=== PATIENT | male | born 1955 | race Caucasian/White ===

== ENCOUNTER 2020-02-16 20:53 | Inpatient (IN) | payer OTHER ==
[~2020-02-16] VITALS: Ht 165.1 cm; Wt 125.2 kg
[2020-02-16 20:55] VITALS: BP 176/104
--- NOTE | 2020-02-16 21:03 | NUR ---
PATIENT PRESENTS TO ED WITH C/O BEING COVID (+) . PT STATES SX SINCE 02/05 AND THAT IS COVID (+). DENIES N/V/D; SKIN IS PINK/WARM/DRY; AAOX4 LUNGS CLEAR BL; HR EVEN AND REGULAR; PT DENIES ANY FEVER, CP, SOB, OR COUGH AT THIS TIME; PATIENT STATES PAIN OF 0/10 AT THIS TIME; VSS; PATIENT POSITIONED FOR COMFORT; HOB ELEVATED; BEDRAILS UP X2; BED DOWN. ER MD MADE AWARE OF PT STATUS.
--- NOTE | 2020-02-16 21:27 | NUR ---
XRAY AT BEDSIDE.
--- NOTE | 2020-02-16 21:30 | NUR ---
EKG PERFORMED AT BEDSIDE. EKG READS SINUS TACHYCARDIA @ 105
--- NOTE | 2020-02-16 21:35 | NUR ---
SL ESTABLISHED, LABS DRAWN AND BLOOD CULTURE #1 DRAWN. EKG AND PCXR WERE DONE
[2020-02-16 21:58] LABS: BASOPHILS % (AUTO) 0.1 % (0.0-2.0); HEMATOCRIT 42.8 % (36-52); HEMOGLOBIN 14.3 g/dL (12.0-18.0); LYMPHOCYTES # (AUTO) 0.7 K/uL (2.0-11.5); LYMPHOCYTES % (AUTO) 10.5 % (20.5-51.1); MEAN CORPUSCULAR HEMOGLOBIN 31 pg (27-31); MEAN CORPUSCULAR HGB CONC 34 g/dL (33-37); MONOCYTES # (AUTO) 0.6 K/uL (0.8-1.0); MONOCYTES % (AUTO) 9.4 % (1.7-9.3); NEUTROPHILS # (AUTO) 5.2 K/uL (1.8-7.7); PLATELET COUNT (AUTO) 217 K/uL (140-450); RED CELL DISTRIBUTION WIDTH 14.9 % (11.6-13.7); WHITE BLOOD COUNT (AUTO) 6.4 K/uL (4.8-10.8)
[2020-02-16 22:14] LABS: ALBUMIN 3.1 g/dL (3.4-5.0); ANION GAP 12.1 (8-16); CARBON DIOXIDE 27.6 mmol/L (21-32); CREATININE 0.9 mg/dL (0.6-1.3); POTASSIUM 3.7 mmol/L (3.5-5.1); TOTAL BILIRUBIN 0.3 mg/dL (0.0-1.0)
[2020-02-16] MEDS ORDERED: OSELTAMIVIR PHOSPHATE 75 MG CAP PO ONE (22:35)
--- NOTE | 2020-02-16 23:00 | NUR ---
RESTING COMFORTABLY. IS TO BE ADMITTED AND ROOM IS READY. PT MADE AWARE. HAS BEEN UNABLE TO VOID
--- NOTE | 2020-02-16 23:24 | NUR ---
REPORT CALLED TO TODD RN
--- NOTE | 2020-02-16 23:24 | NUR ---
Patient will be admitted to care of DR BROOKE. Will go to room 111B. Belongings list completed. Report to JUAN BROOKS.
--- NOTE | 2020-02-16 23:34 | NUR ---
TO 111B VIA GURNEY, ATTACHED TO DESK CLERKS SUPERVISOR, ACCOMPANIED BY RN AND ERT
[2020-02-16 23:45] VITALS: BP 150/97
--- NOTE | 2020-02-16 23:45 | NUR ---
ADMITTED A 65m FROM ER. CAME BY MICHAEL DUE TO S/S OF COVID +. WAS TESTED FEW DAYS AGO FOR COVID AND RESULT +POSITIVE, HAS SLIGHT TEMP PRIOR TO ADMISSION. BUT AT THIS TIME TEMP IS 98.9. WITH INTERMITTENT PRODUCTIVE COUGH . WEAKNESS AND SOB . ON O2 4L/NC. 2 SAT 93% AT THIS TIME. NO C/O SOB. PT HAS HL ON THE LT AC G#18. CLEAR AND PATENT. AMBULATE WITH CANE. BOTH LEGS ARE BIG HX: LUPUS. SKIN INTACT. ORIENTED TO HOSPITAL ROUTINES. FREQ ROUNDS NEEDED. BED ON LOW POSITION. SIDE RAILS UP X2 AND CALL LIGHT ,URINAL WITHIN REACH. WILL CONTINUE TO MONITOR. FOLLOW UP WITH ADMIT ORDERS.
--- NOTE | 2020-02-17 00:10 | NUR ---
MRSA NARES SPECIMEN COLLECTED. SEND TO LAB.
[2020-02-17] MEDS ORDERED: ONDANSETRON 4 MG/2 ML VIAL IM/IVP PRN (00:35)
[2020-02-17] MEDS ORDERED: DOCUSATE SODIUM 100 MG GELCAP PO PRN (00:35)
[2020-02-17] MEDS ORDERED: HYDROcodone/APAP 5/325 MG 1 TAB TAB PO PRN (00:35)
[2020-02-17] MEDS ORDERED: MORPHINE SULFATE 2 MG/ML SYR IVP PRN (00:35)
[2020-02-17 01:32] LABS: MAGNESIUM 1.9 mg/dL (1.8-2.4); PHOSPHORUS 2.3 mg/dL (2.5-4.9)
[2020-02-17] MEDS: NACL 0.9% 1,000 ML IV SCH ×2 (01:36→17:25)
--- NOTE | 2020-02-17 01:36 | NUR ---
IVF NS @60 ML/HR STARTED ON PT ON HIS LT AC G18. CLEAR AND PATENT.
--- NOTE | 2020-02-17 02:00 | NUR ---
CHECKED ON PT. ASLEEP. O2 SAT 94% WITH O2 4L/NC. WILL CONTINUE TO MONITOR.
--- NOTE | 2020-02-17 03:30 | NUR ---
CHECKED ON PT. ASLEEP. NO SOB NOTED. O2 SAT 93%. WILL CONTINUE TO MONITOR.
[2020-02-17 04:00] VITALS: BP 140/68
--- NOTE | 2020-02-17 05:40 | NUR ---
STILL NEED URINE SPECIMEN FOR UA AND CULTURE. PT INSTRUCTED TO USE THE NEW URINAL. CALL US IF ANY URINE AVAILABLE. VERBALIZED UNDERSTANDING.
--- NOTE | 2020-02-17 06:40 | NUR ---
URINE SPECIMEN COLLECTED AND SEND TO LAB.
--- NOTE | 2020-02-17 07:35 | NUR ---
ENDORSED PT IN STABLE CONDITION TO AM NURSE.
[2020-02-17 08:00] VITALS: BP 121/61
[2020-02-17] MEDS: OSELTAMIVIR PHOSPHATE 75 MG CAP PO SCH ×2 (09:16→20:15)
[2020-02-17] MEDS: ACETAMINOPHEN 325 MG TAB PO PRN ×3 (09:16→23:33)
--- NOTE | 2020-02-17 09:20 | NUR ---
SCHEDULED MEDICATIONS GIVEN. TYLENOL GIVEN FOR HIGH FEVER. PATIENT HAS FLU SYMPTOMS SUCH RUNNING NOSE, NOSE CONGESTIONS. EDUCATIONS PROVIDED REGARDING MEDICATIONS AND COVID S/S AND MANAGEMENT. O2 SAT RANGE FROM 85-90%. ENCOURAGED PATIENT TO TAKE DEEP BREATH AND RELAXATION TECHNIQUE. SAFETY MEASURES IN PLACE, CALL LIGHT WITHIN REACH. WILL CONTINUE TO MONITOR.
[2020-02-17 10:49] LABS: BILIRUBIN,URINE NEGATIVE (NEGATIVE); BLOOD, URINE 1+ (NEGATIVE); COLOR,URINE YELLOW (YELLOW); LEUKOCYTE ESTERASE ,URINE NEGATIVE (NEGATIVE); NITRITE, URINE NEGATIVE (NEGATIVE); PH,URINE 6.5 (5.0-9.0); UGLUCOSE NEGATIVE (NEGATIVE)
[2020-02-17 10:53] LABS: APPEARANCE,URINE SLIGHTLY HAZY (CLEAR)
[2020-02-17 11:02] LABS: URINE AMORPHOUS URATE None Seen /HPF (None Seen); WBC,URINE 0-5 /HPF (0-5)
--- NOTE | 2020-02-17 11:05 | NUR ---
CHECKED PATIENT. PT RESTING IN BED WITH LEFT LATERAL POSITION, RUNNING NOSE DUE TO INFLUENZA B. O2 SAT 87% WITH 3L NC, PATIENT'S O2 DESATURATE TO 84-85% WHEN HE TALKS OR MOVES/TURNS. ENCOURAGED PATIENT TO TAKE DEEP BREATH AND KEEP HYDRATION. SAFETY MEASURES IN PLACE, WILL CONTINUE TO MONITOR.
[2020-02-17 12:00] VITALS: BP 104/70
--- NOTE | 2020-02-17 14:28 | NUR ---
PATIENT RESTING IN BED, OXYGEN EXTENSION TUBE PROVIDED. PATIENT STILL HAS RUNNING NOSE, TISSUE PROVIDED. O2 SAT 88-89% WITH 3L NX. DR. BROOKE CAME TO CHECK ON THE PATIENT AT THE BEDSIDE. WILL CONTINUE TO MONITOR.
[2020-02-17 16:00] VITALS: BP 123/72
[2020-02-17] MEDS ORDERED: SODIUM PHOS / POTASSIUM PHOS 1 PKT PDR PO PRN (17:20)
--- NOTE | 2020-02-17 17:26 | NUR ---
TYLENOL GIVEN FOR TEMP 100.5. HANG NEW BAG OF IVF, O2 SAT 89% WITH 3L NC. PATIENT HAS RUNNING NOSE. SAFETY MEASURES IN PLACE, CALL LIGHT WITHIN REACH. WILL CONTINUE TO MONITOR.
--- NOTE | 2020-02-17 18:55 | NUR ---
Covid results received from lab. Results = POSITIVE. Hard copy requested from lab and placed in infection controls mailbox.
--- NOTE | 2020-02-17 19:20 | NUR ---
ENDORSED PATIENT TO RENTAL CAR PORTER RN FOR CONTINUITY OF CARE. PATIENT IN STABLE CONDITION.
--- NOTE | 2020-02-17 19:21 | NUR ---
RECEIVED REPORT FROM DAY SHIFT NURSE. PT IN BED RESTING WITH HOB ELEVATED. PT AAOX4, AMBULATES WITH ASSISTIVE DEVICE, ABLE TO MAKE NEEDS KNOWN. RESPIRATIONS EVEN AND UNLABORED TO O2 3LPM/NC. PT WITH DIMINISHED LUNG SOUNDS. ABDOMEN IS SOFT AND NON-TENDER, ACTIVE BOWEL SOUNDS NOTED. SKIN IS WARM, DRY, AND INTACT. PT WITH IV ACCESS ON LEFT AC G18 PATENT AND INTACT, IVF INFUSING WELL. PT DENIES ANY PAIN OR DISCOMFORT AT THIS TIME. NO REQUESTS MADE. SAFETY MEASURES IN PLACE, CALL LIGHT WITHIN REACH. WILL CONTINUE TO MONITOR.
[2020-02-17 20:00] VITALS: BP 137/84
--- NOTE | 2020-02-17 20:08 | NUR ---
VS TAKEN, STABLE. PT FEBRILE 101.6 TYLENOL NOT DUE YET. COOLING MEASURES IN PLACE. PT DENIES ANY PAIN OR DISCOMFORT. PT NOT IN DISTRESS. O2 3LPM/NC IN PLACE. NO REQUESTS MADE. SAFETY MEASURES IN PLACE. CALL LIGHT WITHIN REACH. WILL CONTINUE TO MONITOR.
--- NOTE | 2020-02-17 23:33 | NUR ---
ROUNDS MADE. VS STABLE. PT STILL FEBRILE 101.6, PRN TYLENOL GIVEN ORDERED. COOLING MEASURES IN PLACE. PT NOT IN DISTRESS. O2 IN PLACE. NO REQUESTS MADE AT THIS TIME. SAFETY MEASURES IN PLACE, CALL LIGHT WITHIN REACH. WILL CONTINUE TO MONITOR.
[2020-02-18] VITALS: BP 134/67
--- NOTE | 2020-02-18 02:31 | NUR ---
ROUNDS MADE. PT ASLEEP NO SIDE LYING POSITION. O2 IN PLACE. PT NOT IN DISTRESS. VISIBLE CHEST RISE AND FALL NOTED. PT KEPT COMFORTABLE. SAFETY MEASURES IN PLACE. CALL LIGHT WITHIN REACH. WILL CONTINUE TO MONITOR.
[2020-02-18 04:00] VITALS: BP 119/71
--- NOTE | 2020-02-18 04:05 | NUR ---
VS TAKEN. TEMP 100.0, COOLING MEASURES IN PLACE. PT NOT IN DISTRESS. O2 IN PLACE. DENIES ANY PAIN OR DISCOMFORT. CALL LIGHT WITHIN REACH. WILL CONTINUE TO MONITOR.
[2020-02-18] MEDS: ACETAMINOPHEN 325 MG TAB PO PRN (06:40)
--- NOTE | 2020-02-18 06:40 | NUR ---
TEMP 100.7 PRN TYLENOL GIVEN ORDERED. WILL CONTINUE TO MONITOR.
--- NOTE | 2020-02-18 08:01 | NUR ---
ENDORSED TO DAY SHIFT NURSE FOR CONTINUITY OF CARE
[2020-02-18 08:10] VITALS: BP 122/81
[2020-02-18 08:31] LABS: ANION GAP 11.5 (8-16); CARBON DIOXIDE 28.5 mmol/L (21-32); CREATININE 0.7 mg/dL (0.6-1.3)
[2020-02-18 08:32] LABS: BASOPHILS % (AUTO) 0.3 % (0.0-2.0); EOSINOPHILS % (AUTO) 0.1 % (0.0-4.0); HEMATOCRIT 41.8 % (36-52); LYMPHOCYTES % (AUTO) 17.3 % (20.5-51.1); MEAN CORPUSCULAR HEMOGLOBIN 30 pg (27-31); MEAN CORPUSCULAR HGB CONC 34 g/dL (33-37); MEAN CORPUSCULAR VOLUME 90.2 fL (80-94); MONOCYTES # (AUTO) 0.6 K/uL (0.8-1.0); MONOCYTES % (AUTO) 9.7 % (1.7-9.3); NEUTROPHILS # (AUTO) 4.3 K/uL (1.8-7.7); NEUTROPHILS % (AUTO) 72.6 % (42.2-75.2); PLATELET COUNT (AUTO) 202 K/uL (140-450); RED BLOOD CELL COUNT(AUTO) 4.63 MIL/uL (4.20-6.10); RED CELL DISTRIBUTION WIDTH 14.9 % (11.6-13.7); WHITE BLOOD COUNT (AUTO) 5.9 K/uL (4.8-10.8)
--- NOTE | 2020-02-18 09:00 | NUR ---
PATIENT HAS BEEN SCREENED AND CATEGORIZED MODERATE NUTRITION RISK. PATIENT WILL BE SEEN WITHIN 3-5 DAYS OF ADMISSION. 02/19/20 02/21/[address]
[2020-02-18] MEDS: OSELTAMIVIR PHOSPHATE 75 MG CAP PO SCH ×2 (09:39→21:00)
[2020-02-18] MEDS: NACL 0.9% 1,000 ML IV SCH (10:05)
[2020-02-18] MEDS ORDERED: MAG SULF 2000 MG/WATER PREMIX 50 ML IV PRN (11:20)
--- NOTE | 2020-02-18 11:33 | NUR ---
DISCHARGE PLANNING: LATE ENTRY FOR THIS MORNING: CONTACTED [employer] TO FOLLOW UP WITH AUTH AT [phone], I WAS ON HOLD FOR 32 MINS JUST TO TRY TO CONNECT TO A LIVE AGENT. I WILL FOLLOW UP. Addendum: 02/18/20 at 1218 by Jennifer Garrison CM ABLE TO GET A HOLD OF SHELLIE PRUITTENA AFTER 27 MINS ON HOLD. PER SHELLIE KRISHNAN, SHE DENIED YESTERDAY BECAUSE OF INSUFFICIENT INFORMATION. SHE STATED SHE ONLY GOT CLINICALS FROM THE . UPDATED HER OF THE PATIENT'S CONDITION. SHE STATED IF SHE GETS CLINICALS FOR TODAY, SHE WILL REVIEW IT. I ASKED HER FOR HER DIRECT NUMBER BECAUSE I HAD A HARD TIME GETTING A HOLD OF THEM. SHE PROVIDED ME WITH HER DIRECT NUMBER [phone]. UPDATED CLINICALS SENT TO [phone]. Addendum: 02/18/20 at 1410 by Jennifer Garrison CM PER DR. HAILE, PATIENT IS STABLE FOR TRANSFER TO CONTRACTED FACILITY. ORDER TRANSCRIBED. ORDER AND POST STAB FORM SENT TO [employer]. SHELLIE KRISHNAN OF [employer] MADE AWARE AT [phone]. PER SHELLIE KRISHNAN SHE WILL WORK ON IT. PROVIDED HER OF THE UNIT'S PHONE NUMBER. WILL FOLLOW UP. Addendum: 02/18/20 at 1502 by Jennifer Garrison RECEIVED A CALL FROM SHELLIE MOLINA [employer], STATING THAT SHE SPOKE TO THE NURSE AND INFORMED HER THAT PATIENT DESATURATED TO 80% AND INCREASED 02 TO 6LPM. SHE STATED SHE WILL RETRACT THE DENIAL AND WILL BE SENDING HARD COPY OF THE AUTH AND WILL FOLLOW UP WITH ME AGAIN TOMORROW. Addendum: 02/26/20 at 1651 by Corina Loyd DC MILK DRIER: TRANSPORTATION HAS BEEN SET UP ON WILL CALL WITH [facility]. PENDING BED AT [facility].
[2020-02-18 12:00] VITALS: BP 125/79
[2020-02-18] MEDS ORDERED: POTASSIUM CHLORIDE 40 MEQ, LIDOCAINE MPF 1% 25 MG in NACL 0.9% 250 ML IV PRN (13:00)
--- NOTE | 2020-02-18 14:13 | NUR ---
SOCIAL WORK NOTE: Patient's Orientation Unable To Assess Information Provided By JEREMY MONTESINOS - Comments SW WAS UNABLE TO MEET PATIENT AT BEDSIDE DUE TO MEDICAL CONDITION. SW COMPLETED ASSESSMENT WITH PATIENT'S . Montessori Program Director, Realtionship and Phone Number JEREMY CASTELLANOS [phone] Healthcare Power of Rotary Cutter Feeder No Does Patient Have a POLST No Identifying Problems No Social Work Triggers Is A Social Work Consult Needed No Mandate Report Filed No Explanation Of Identifying Problems PATIENT IS A 65-YEAR-OLD MALE ADMITTED FOR COVID, HYPOXIA, AND INFLUENZA. PATIENT HAS PMHX OF ASTHMA AND LUPUS. PATIENT'S REPORTED NO HISTORY OF SUBSTANCE ABUSE OR MENTAL HEALTH. Admitted From Home Pre-Admission Level Of Functioning Status Independent With DME Prior Resources/Services Used In Last 12 Months No Prior Resources Used Prior DME Walker Dialysis Comments N/A Living Situation Lives With Family House Other Living Situation/Comment PATIENT'S REPORTED THAT PATIENT LIVES WITH AND DAUGHTERS. Patient Had Caregiver No Home Support No Caregiver Issues Financial Issues No Known Financial Issue Referral To The Financial Counselor Needed No Factors/Needs No D/C Needs Identified Pt/Rep Participated In Discharge Plan Yes Patient/Family Agress With Discharge Plan Yes Discharge Plan Comments TENTATIVE DISCHARGE PLAN IS FOR PATIENT TO RETURN HOME. DC Plan Status Initiated
[2020-02-18] MEDS ORDERED: remdesivir COMMUNICATION ORDER 1 EA MISC MC PRN (14:20)
[2020-02-18] MEDS ORDERED: CLINICAL MONITORING MC PRN (14:45)
[2020-02-18] MEDS ORDERED: POTASSIUM CHLORIDE 10 MEQ TABER PO SCH (15:00)
[2020-02-18 16:00] VITALS: BP 121/77
[2020-02-18] MEDS ORDERED: REMDESIVIR (EUA) 200 MG in NACL 0.9% 100 ML IV SCH (17:00)
--- NOTE | 2020-02-18 19:25 | NUR ---
RECEIVED REPORT AND CONTINUITY OF CARE FROM AM NURSE.
[2020-02-18 20:00] VITALS: BP 151/97
[2020-02-18] MEDS: VITAMIN D 400 IU TAB PO SCH (21:00)
[2020-02-18] MEDS: ZINC SULF 220 MG CAP PO SCH (21:00)
--- NOTE | 2020-02-18 21:40 | NUR ---
PT IS A/OX4, MOHAWK SPEAKING, HEAD IS NORMOCEPHALIC, EQUAL BILATERAL EYEBROWS, SYMMETRICAL SMILE, PMMM. TRACH MIDLINE, NO JVD NOTED AT THIS TIME. CHEST IS SYMMETRICAL, BREATHING SPONTANEOUSLY ON 15L 02 VIA OXIMIZER, RESPIRATIONS EVEN AND UNLABORED. TELE MONITOR ATTACHED. ABD IS SOFT AND NON-TENDER, ACTIVE BOWEL TONES NOTED. SKIN IS WARM, SMOOTH, CDI. NORMAL SKIN TURGOR NOTED. ADMINISTERED SCHEDULED MEDICATIONS, EDUCATION RENDERED. SAFETY PRECAUTIONS IN PLACE. ALL STAFF TO OBSERVE ISOLATION PRECAUTION.
--- NOTE | 2020-02-18 23:20 | NUR ---
PT IS SLEEPING. VISIBLE CHEST RISE NOTED.
[2020-02-19] VITALS: BP 141/85
[2020-02-19] MEDS: REMDESIVIR (EUA) 100 MG in NACL 0.9% 100 ML IV SCH ×2
--- NOTE | 2020-02-19 00:59 | NUR ---
PT IS SLEEPING. NO SIGNS OF DISTRESS AT THIS TIME.
[2020-02-19] MEDS: NACL 0.9% 1,000 ML IV SCH ×2 (02:35→20:00)
--- NOTE | 2020-02-19 03:23 | NUR ---
PT IS SLEEPING, NO SIGNS OF DISTRESS.
[2020-02-19 04:00] VITALS: BP 105/53
--- NOTE | 2020-02-19 05:32 | NUR ---
PT IS SLEEPING.
--- NOTE | 2020-02-19 07:20 | NUR ---
RECEIVED REPORT FROM NIGHT NURSE PATIENT IS AAOX4, SKIN INTACT ON 4LPM 0XYGEN VIA NC, FOR PICC LINE INSERTION WITH CONSENT, AMBULATORY, ON CARDIAC DIET AND FULL CODE. SAFETY MEASURES IN PLACE AND CALL LIGHT WITHIN REACH. WILL CONTINUE TO MONITOR.
[2020-02-19 08:00] VITALS: BP 127/67
[2020-02-19 08:11] LABS: BASOPHILS % (AUTO) 0.2 % (0.0-2.0); EOSINOPHILS % (AUTO) 0.4 % (0.0-4.0); HEMATOCRIT 40.2 % (36-52); HEMOGLOBIN 13.5 g/dL (12.0-18.0); LYMPHOCYTES % (AUTO) 14.5 % (20.5-51.1); MEAN CORPUSCULAR HEMOGLOBIN 30 pg (27-31); MEAN CORPUSCULAR HGB CONC 34 g/dL (33-37); MEAN CORPUSCULAR VOLUME 89.9 fL (80-94); MONOCYTES # (AUTO) 0.6 K/uL (0.8-1.0); MONOCYTES % (AUTO) 7.9 % (1.7-9.3); NEUTROPHILS # (AUTO) 5.5 K/uL (1.8-7.7); PLATELET COUNT (AUTO) 215 K/uL (140-450); RED BLOOD CELL COUNT(AUTO) 4.47 MIL/uL (4.20-6.10); RED CELL DISTRIBUTION WIDTH 14.7 % (11.6-13.7); WHITE BLOOD COUNT (AUTO) 7.1 K/uL (4.8-10.8)
[2020-02-19 08:40] LABS: ALBUMIN 2.2 g/dL (3.4-5.0); ANION GAP 12.5 (8-16); CARBON DIOXIDE 26.9 mmol/L (21-32); CREATININE 0.8 mg/dL (0.6-1.3); POTASSIUM 3.4 mmol/L (3.5-5.1); TOTAL BILIRUBIN 0.6 mg/dL (0.0-1.0)
[2020-02-19] MEDS: POTASSIUM CHLORIDE 10 MEQ TABER PO SCH (08:44)
[2020-02-19] MEDS: OSELTAMIVIR PHOSPHATE 75 MG CAP PO SCH ×2 (08:45)
[2020-02-19] MEDS: VITAMIN D 400 IU TAB PO SCH ×2 (08:45)
[2020-02-19] MEDS: ZINC SULF 220 MG CAP PO SCH ×2 (08:45)
--- NOTE | 2020-02-19 08:45 | NUR ---
MEDICATION DUE GIVEN PATIENT ABLE TO TOLERATE WELL AND NO DISTRESS NOTED, DENIES PAIN AND VERBALIZES HE FEELS BETTER. SAFETY MEASURES IN PLACE CALL LIGHT WITHIN REACH. WILL CONTINUE TO MONITOR.
[2020-02-19] MEDS ORDERED: remdesivir CLINICAL MONITORING 1 EA MISC MC PRN (11:35)
[2020-02-19 12:00] VITALS: BP 146/87
[2020-02-19] MEDS: ACETAMINOPHEN 325 MG TAB PO PRN (12:30)
--- NOTE | 2020-02-19 12:36 | NUR ---
CHECK VITAL SIGNS PATIENT IS HAVING CHEEL;S ANF FEVER 100F GAVE TYLENOL AND COOLING MEASURES.
--- NOTE | 2020-02-19 14:00 | NUR ---
PATIENT OXYGEN LEVEL CHANGED FROM OXIMIZER TO NON RE BREATHER MASK AT 15LPM
[2020-02-19 16:00] VITALS: BP 135/65
--- NOTE | 2020-02-19 16:00 | NUR ---
VITAL SIGNS TAKE PATIENT BP 135/65 NM 118 AND SATURATION AT 85%
--- NOTE | 2020-02-19 19:03 | NUR ---
PICC INSERTED ON THE RIGHT UPPER ARM DOUBLE LUMEN AND OK TO USE.
--- NOTE | 2020-02-19 19:27 | NUR ---
ENDORSED TO NIGHT NURSE FOR CONTINUITY OF CARE. PT IS STABLE
--- NOTE | 2020-02-19 19:28 | NUR ---
RECIEVED PT AAOX4 , O2 SAT 90 TO 91 % , W/ PICC LINE - INTACT AND PATENT . W/ NRM + NC AT 15LPM . SAFETY MEASURES IN PLACE . PLAN OF CARE DISCUSSED AND VERBALIZE UNDERSTANDING . WILL CONT. TO MONITOR
[2020-02-19 20:00] VITALS: BP 124/72
[2020-02-19] MEDS ORDERED: AZITHROMYCIN 500 MG INJ VIAL IV ONE (20:41)
[2020-02-19] MEDS: AZITHROMYCIN 500 MG in DEXTROSE 5% 250 ML IV SCH (21:00)
[2020-02-20] VITALS: BP 121/71
--- NOTE | 2020-02-20 | NUR ---
RECEIVED PT AAOX4 , NID - O2 WNL - ON O2 AT 15LPM/ NRM . PICC LINE INTACT AND PATENT . PLAN OF CARE DISCUSSED AND VERBALIFE UNDERSTANDING WILL CONT. TO MONITOR .
--- NOTE | 2020-02-20 | NUR ---
MADE ROUNDS . NO S/SX OF ACUTE DISTRESS NOTED
[2020-02-20] MEDS ORDERED: PROMETHAZINE DM 6.25/15MG-5ML ORASYR PO PRN (01:00)
[2020-02-20 04:00] VITALS: BP 92/41
--- NOTE | 2020-02-20 04:00 | NUR ---
O2 AST WNL . NO S/SX OF ACUTE DISTRESS
--- NOTE | 2020-02-20 06:00 | NUR ---
NO COMPLAIN MADE
--- NOTE | 2020-02-20 07:30 | NUR ---
ENDORSED - PT - STABLE . Addendum: 02/20/20 at 0831 by Eli London RN INFORMED PHARMACIST ABOVE WHAT HAPPENNED TO LATE MEDICATION P- PHARMACIST SAID PROCEED THE DUE SCHEDULED MEDICATION TODAY - ENDORSED TO AM NURSE CALLE.
[2020-02-20 08:00] VITALS: BP 143/85
[2020-02-20 08:36] LABS: BASOPHILS % (AUTO) 0.3 % (0.0-2.0); EOSINOPHILS # (AUTO) 0.2 K/uL (0-0.4); EOSINOPHILS % (AUTO) 1.7 % (0.0-4.0); HEMATOCRIT 39.6 % (36-52); HEMOGLOBIN 13.5 g/dL (12.0-18.0); LYMPHOCYTES # (AUTO) 0.8 K/uL (2.0-11.5); MEAN CORPUSCULAR HEMOGLOBIN 30 pg (27-31); MEAN CORPUSCULAR HGB CONC 34 g/dL (33-37); MEAN CORPUSCULAR VOLUME 89.3 fL (80-94); MONOCYTES # (AUTO) 0.7 K/uL (0.8-1.0); MONOCYTES % (AUTO) 7.7 % (1.7-9.3); NEUTROPHILS # (AUTO) 7.4 K/uL (1.8-7.7); NEUTROPHILS % (AUTO) 81.3 % (42.2-75.2); PLATELET COUNT (AUTO) 207 K/uL (140-450); RED BLOOD CELL COUNT(AUTO) 4.43 MIL/uL (4.20-6.10); RED CELL DISTRIBUTION WIDTH 14.8 % (11.6-13.7); WHITE BLOOD COUNT (AUTO) 9.1 K/uL (4.8-10.8)
[2020-02-20 09:05] LABS: ALBUMIN 2.1 g/dL (3.4-5.0); ANION GAP 13.3 (8-16); CARBON DIOXIDE 25.5 mmol/L (21-32); CREATININE 0.7 mg/dL (0.6-1.3); POTASSIUM 3.8 mmol/L (3.5-5.1); TOTAL BILIRUBIN 0.5 mg/dL (0.0-1.0)
[2020-02-20] MEDS: DEXAMETHASONE 10 MG/ML VIAL IVP SCH (09:05)
[2020-02-20] MEDS: VITAMIN D 400 IU TAB PO SCH ×2 (09:06→21:31)
[2020-02-20] MEDS: OSELTAMIVIR PHOSPHATE 75 MG CAP PO SCH ×2 (09:06→21:31)
[2020-02-20] MEDS: ZINC SULF 220 MG CAP PO SCH ×2 (09:06→21:31)
[2020-02-20] MEDS: POTASSIUM CHLORIDE 10 MEQ TABER PO SCH (09:06)
--- NOTE | 2020-02-20 09:18 | NUR ---
SCHEDULED MEDICATIONS GIVEN, EDUCATION PROVIDED. PATIENT'S O2 SAT WAS FOUND 43%, PATIENT WAS TRYING TO EAT AND TOOK OFF THE NON REBREATHER. SWITCHED TO 15L OXIMIZER. WAITED FOR 10 MINS, O2 SAT INCREASED TO 77%. CALLED RT BILL, WILL CHECK THE PATIENT. WILL CONTINUE TO MONITOR.
--- NOTE | 2020-02-20 11:05 | NUR ---
PATIENT RESTING IN BED WITH LEFT LATERAL POSITION. O2 SAT 93-94% WITH 15L NRB. HR 100. SAFETY MEASURES IN PLACE, WILL CONTINUE TO MONITOR.
[2020-02-20] MEDS: NACL 0.9% 1,000 ML IV SCH (11:55)
[2020-02-20 12:00] VITALS: BP 114/96
[2020-02-20] MEDS: REMDESIVIR (EUA) 100 MG in NACL 0.9% 100 ML IV SCH (12:40)
--- NOTE | 2020-02-20 12:40 | NUR ---
RESDESIVIR GIVEN VIA IVPB. EDUCATION PROVIDED. PATIENT HAVING LUNCH. SITTING SIDE OF THE BED. O2 SAT RANGE FROM 84-90% WITH 15L NRB. ENCOURAGED PATIENT TO TAKE ONE BITE OF FOOD AND PUT BACK THE MASK ON, REPEAT UNTIL FINISH THE LUNCH. PATIENT VERBALIZED UNDERSTANDING. WILL CONTINUE TO MONITOR.
--- NOTE | 2020-02-20 14:52 | NUR ---
PATIENT RESTING IN BED, O2 SAT 92% WITH 15L NRB. HR 100. ENCOURAGED PATIENT TO TAKE DEEP BREATH AND RELAXATION TECHNIQUE. VERBALIZED UNDERSTANDING. NO ACUTE DISTRESS NOTED AT THIS TIME. PATIENT'S NEEDS MET. WILL CONTINUE TO MONITOR.
[2020-02-20 16:00] VITALS: BP 115/75
--- NOTE | 2020-02-20 16:06 | NUR ---
02/20/20 RD INITIAL ASSESSMENT COMPLETED PLEASE REFER TO NUTRITION ASSESSMENT UNDER CARE ACTIVITY FOR ESTIMATED NUTRITIONAL NEEDS. 1. CONTINUE MECHANICAL SOFT DIET TOLERATED 2. RECOMMEND ENSURE TID 3. ENCOURAGE INCREASING PO INTAKE 4. RD TO FOLLOW-UP 3-5 DAYS, MODERATE RISK GAMALIEL NGUYEN, ALETHA
[2020-02-20] MEDS: AZITHROMYCIN 500 MG in DEXTROSE 5% 250 ML IV SCH (16:38)
--- NOTE | 2020-02-20 16:38 | NUR ---
SCHEDULED MEDICATION AZITHROMYCIN GIVEN VIA IVPB. EDUCATION PROVIDED. PATIENT RESTING IN BED WITH O2 SAT 91% WITH 15L. PATIENT'S O2 DECREASE TO 88% WHEN HE TALK/MOVE. ENCOURAGED PATIENT TO RELAX, SAFETY MEASURES IN PLACE. WILL CONTINUE TO MONITOR.
--- NOTE | 2020-02-20 19:30 | NUR ---
ENDORSED PATIENT TO PUTTY MAKER RN FOR CONTINUITY OF CARE. PATIENT'S O2 SAT 92% WITH 15L NRB.
--- NOTE | 2020-02-20 19:30 | NUR ---
RECEIVED PT AAOX4 , NID - O2 SAT WNL - ON O2 AT 15LPM/NRM , PICC LINE INTACT AND PATENT . SAFETY MEASURES IN PLACE . PLAN OF CARE DISCUSSED AND VERBALIZE UNDERSTANDING . WILL CONT. TO MONITOR
[2020-02-20 20:00] VITALS: BP 141/76
[2020-02-21] VITALS: BP 116/89
--- NOTE | 2020-02-21 | NUR ---
NO S/SX OF ACUTE DISTRESS - O2 SAT WNL .
[2020-02-21] MEDS: NACL 0.9% 1,000 ML IV SCH ×3 (00:50→23:45)
[2020-02-21 04:00] VITALS: BP 110/60
--- NOTE | 2020-02-21 04:00 | NUR ---
O2 SAT WNL . NO S/SX OF ACUTE DISTRESS
--- NOTE | 2020-02-21 06:00 | NUR ---
NO COMPLAIN MADE - O2 SAT WNL .
--- NOTE | 2020-02-21 07:25 | NUR ---
ENDORSED - PT - STABLE
[2020-02-21 08:00] VITALS: BP 124/81
[2020-02-21 08:14] LABS: BASOPHILS % (AUTO) 0.1 % (0.0-2.0); HEMATOCRIT 38.3 % (36-52); HEMOGLOBIN 12.6 g/dL (12.0-18.0); LYMPHOCYTES # (AUTO) 0.5 K/uL (2.0-11.5); LYMPHOCYTES % (AUTO) 4.6 % (20.5-51.1); MEAN CORPUSCULAR HEMOGLOBIN 30 pg (27-31); MEAN CORPUSCULAR HGB CONC 33 g/dL (33-37); MEAN CORPUSCULAR VOLUME 90.2 fL (80-94); MONOCYTES # (AUTO) 1.1 K/uL (0.8-1.0); NEUTROPHILS # (AUTO) 10.2 K/uL (1.8-7.7); NEUTROPHILS % (AUTO) 86.3 % (42.2-75.2); PLATELET COUNT (AUTO) 222 K/uL (140-450); RED BLOOD CELL COUNT(AUTO) 4.24 MIL/uL (4.20-6.10); RED CELL DISTRIBUTION WIDTH 14.7 % (11.6-13.7); WHITE BLOOD COUNT (AUTO) 11.9 K/uL (4.8-10.8)
[2020-02-21] MEDS: DEXAMETHASONE 10 MG/ML VIAL IVP SCH (08:50)
[2020-02-21] MEDS: POTASSIUM CHLORIDE 10 MEQ TABER PO SCH (08:51)
[2020-02-21] MEDS: ZINC SULF 220 MG CAP PO SCH ×2 (08:51→21:36)
[2020-02-21] MEDS: VITAMIN D 400 IU TAB PO SCH ×2 (08:51→21:37)
--- NOTE | 2020-02-21 09:00 | NUR ---
SCHEDULED MEDICATIONS GIVEN, EDUCATION PROVIDED. PATIENT'S O2 SAT 91% WITH 15L NRB. O2 DESATURATE TO 86% WHEN TOOK OFF THE MASK FOR TAKING THE MEDICATIONS. O2 SAT WENT BACK TO 91% AFTER REAPPLIED THE MASK. DENIES PAIN OR DISCOMFORT AT THIS TIME. WILL CONTINUE TO MONITOR.
[2020-02-21 09:32] LABS: ANION GAP 12.2 (8-16); CREATININE 0.7 mg/dL (0.6-1.3); POTASSIUM 4.2 mmol/L (3.5-5.1); TOTAL BILIRUBIN 0.6 mg/dL (0.0-1.0)
[2020-02-21 12:00] VITALS: BP 126/82
[2020-02-21] MEDS: REMDESIVIR (EUA) 100 MG in NACL 0.9% 100 ML IV SCH (12:40)
--- NOTE | 2020-02-21 12:40 | NUR ---
SCHEDULED MEDICATIONS GIVEN, EDUCATION PROVIDED, SAFETY MEASURES IN PLACE, CALL LIGHT WITHIN REACH. O2 SAT 90% WITH 15L NRB. SAFETY MEASURES IN PLACE, CALL LIGHT WITHIN REACH. WILL CONTINUE TO MONITOR.
--- NOTE | 2020-02-21 15:25 | NUR ---
PATIENT HAD BM AND WET THE BED. SN CHANGED THE WHOLE BED LINENS AND CLEANED THE PATIENT. PATIENT HAD 1 BM. PATIENT'S O2 DESAT IF MOVES. O2 SAT INCREASE BACK TO 90% WHEN RESTING IN BED AND TAKE SOME DEEP BREATH. WILL CONTINUE TO MONITOR.
[2020-02-21 16:00] VITALS: BP 132/84
[2020-02-21] MEDS: AZITHROMYCIN 500 MG in DEXTROSE 5% 250 ML IV SCH (16:07)
--- NOTE | 2020-02-21 18:15 | NUR ---
PATIENT REQUESTED SN TO HELPED HIM TO USE THE BEDSIDE COMMODE. CLEANED THE PATIENT. SECOND TIME BM TODAY. ASSISTED PATIENT BACK TO THE BED, PATIENT'S O2 SAT DESATURATED TO 80S WHEN MOVES. O2 SAT INCREASED TO 88-91% WHEN RESTING IN BED WITH 15L NRB.
--- NOTE | 2020-02-21 19:55 | NUR ---
ENDORSED PATIENT TO EFFICIENCY MANAGER RN FOR CONTINUITY OF CARE. PATIENT IN STABLE CONDITION WITH 15L NRB. O2 SAT 90-91%.
--- NOTE | 2020-02-21 19:56 | NUR ---
RECEIVED ENDORSEMENT FROM AM SHIFT RN. AOX4, ON 15L NRM, NO SOB, NO DISTRESS, IVF INFUSING, FALL PROTOCOL IN PLACE, DROPLET PRECAUTION IN PLACE, PLAN OF CARE DISCUSSED, CALL LIGHT WITHIN REACH.
[2020-02-21 20:00] VITALS: BP 124/95
--- NOTE | 2020-02-21 21:47 | NUR ---
PT IS EATING SANDWICH, SITTING IN BED, NO SOB, DUE MEDS GIVEN ORDERED, TOLERATED WELL, CALL LIGHT WITHIN REACH.
--- NOTE | 2020-02-21 23:45 | NUR ---
PT IS AWAKE, NO DISTRESS, IVF FINISHED, HANGED A NEW BAG OF NS 1L AT 60 CC/HR ORDERED, KEPT COMFORTABLE, ALL NEEDS ATTENDED, CALL LIGHT WITHIN REACH.
[2020-02-22] VITALS: BP 142/88
[2020-02-22] MEDS: ALBUTEROL HFA MDI 90 MCG/ACTUATION 8 GM INH PRN (01:00)
[2020-02-22 04:00] VITALS: BP 113/77
--- NOTE | 2020-02-22 05:00 | NUR ---
GAVE WATER TO PATIENT, PT IS SITTING ON BED, EMPTIED HIS URINAL, ALL NEEDS ATTENDED, NO DISTRESS, PT VERBALIZED THAT HE IS OK. O2 SAT WILL GO DOWN TO 86% UPON EXERTION BUT IT WILL EASILY COME UP TO ABOVE 90% WHEN PT IS RESTING. WILL CONTINUE TO MONITOR, CALL LIGHT WITHIN REACH.
[2020-02-22] MEDS ORDERED: POTASSIUM CHLORIDE 10 MEQ TABER PO PRN (07:10)
--- NOTE | 2020-02-22 07:15 | NUR ---
PT IS IN STABLE CONDITION. BEDSIDE ENDORSEMENT GIVEN TO AM SHIFT RN FOR CONTINUITY OF CARE.
[2020-02-22 08:00] VITALS: BP 117/82
[2020-02-22] MEDS: VITAMIN D 400 IU TAB PO SCH ×2 (08:29→21:31)
[2020-02-22] MEDS: ZINC SULF 220 MG CAP PO SCH ×2 (08:29→21:31)
[2020-02-22] MEDS: DEXAMETHASONE 10 MG/ML VIAL IVP SCH (08:29)
--- NOTE | 2020-02-22 08:34 | NUR ---
SCHEDULED MORNING MEDICATIONS GIVEN, EDUCATION PROVIDED, PATIENT TOLERATED THE PROCEDURE WELL. PATIENT DENIES PAIN AT THIS TIME. O2 SAT RANGE FROM 86-90% WITH 15L NRB. SAFETY MEASURES IN PLACE, WILL CONTINUE TO MONITOR.
[2020-02-22 08:53] LABS: HEMATOCRIT 40.2 % (36-52); HEMOGLOBIN 13.4 g/dL (12.0-18.0); LYMPHOCYTES # (AUTO) 0.7 K/uL (2.0-11.5); LYMPHOCYTES % (AUTO) 3.9 % (20.5-51.1); MEAN CORPUSCULAR HEMOGLOBIN 30 pg (27-31); MEAN CORPUSCULAR HGB CONC 33 g/dL (33-37); MEAN CORPUSCULAR VOLUME 89.8 fL (80-94); MONOCYTES # (AUTO) 1.2 K/uL (0.8-1.0); MONOCYTES % (AUTO) 7.1 % (1.7-9.3); PLATELET COUNT (AUTO) 266 K/uL (140-450); RED BLOOD CELL COUNT(AUTO) 4.48 MIL/uL (4.20-6.10); RED CELL DISTRIBUTION WIDTH 14.6 % (11.6-13.7); WHITE BLOOD COUNT (AUTO) 16.9 K/uL (4.8-10.8)
[2020-02-22 10:06] LABS: ALBUMIN 2.1 g/dL (3.4-5.0); ANION GAP 12.8 (8-16); CARBON DIOXIDE 24.3 mmol/L (21-32); CREATININE 0.7 mg/dL (0.6-1.3); POTASSIUM 4.1 mmol/L (3.5-5.1); TOTAL BILIRUBIN 0.5 mg/dL (0.0-1.0)
[2020-02-22 12:00] VITALS: BP 117/80
[2020-02-22] MEDS: REMDESIVIR (EUA) 100 MG in NACL 0.9% 100 ML IV SCH (12:03)
--- NOTE | 2020-02-22 12:03 | NUR ---
REMDESIVIR GIVEN VIA IVPB. EDUCATION PROVIDED. PATIENT'S O2 SAT 86-91% WITH 15L NRB. PATIENT DENIES PAIN OR DISCOMFORT. NO ACUTE DISTRESS NOTED. SAFETY MEASURES IN PLACE, CALL LIGHT WITHIN REACH. WILL CONTINUE TO MONITOR.
[2020-02-22 16:00] VITALS: BP 124/82
[2020-02-22] MEDS: AZITHROMYCIN 500 MG in DEXTROSE 5% 250 ML IV SCH (16:19)
--- NOTE | 2020-02-22 16:21 | NUR ---
SCHEDULED MEDICATION ZITHROMAX GIVEN VIA IVPB. EDUCATION PROVIDED. 92 SAT 88-90% WITH 15L NRB. SAFETY MEASURES IN PLACE, WILL CONTINUE TO MONITOR.
--- NOTE | 2020-02-22 19:28 | NUR ---
ENDORSED PATIENT TO WELT TREATER RN FOR CONTINUITY OF CARE. PATIENT IN STABLE CONDITION.
--- NOTE | 2020-02-22 19:29 | NUR ---
RECEIVED PT AAOX4 , HOOK ON O2 SAT MONITORING - ON NRM AT 15LPM. PICC LINE INTACT AND PATENT . ON TELE MONITOR . SAFETY MEASURES IN PLACE - CALL LIGHT WITHIN REACH . PLAN OF CARE DISCUSSED AND VERBALIZE UNDERSTANDING . FOR CLOSELY WATCH - COVID19 + .FULL CODE
[2020-02-22 20:00] VITALS: BP 81/67
--- NOTE | 2020-02-22 21:43 | NUR ---
PT IS AWAKE, NO DISTRESS, DUE MEDS GIVEN ORDERED, CALL LIGHT WITHIN REACH.
[2020-02-23] VITALS (7 sets, daily range): BP systolic 110–157; BP diastolic 79–97
--- NOTE | 2020-02-23 02:00 | NUR ---
SLEEPING - O2 SAT WNL .
--- NOTE | 2020-02-23 04:00 | NUR ---
MADE ROUNDS , NO S/SX OF ACUTE DISTRESS - O2 SAT WNL .
[2020-02-23] MEDS: NACL 0.9% 1,000 ML IV SCH ×2 (06:49→23:15)
--- NOTE | 2020-02-23 06:52 | NUR ---
IVF FINISHED, HANGED A NEW BAG OF IVF. PT IS ASLEEP, RESPIRATION EVEN AND UNLABORED, O2 SAT WNL 92% ON NRB 15L. PT STABLE, CALL LIGHT WITHIN REACH.
--- NOTE | 2020-02-23 07:30 | NUR ---
ENDOPRSED TO AM SHIFT - PT - STABLE .
--- NOTE | 2020-02-23 08:20 | NUR ---
Patient is AOX4, sinus tachycardia HR 100-105bpm, respirations labored on 15L nonrebreather mask. Pt reports shortness of breath with activity and exertion. Says he feels "much better" than a few days ago. SpO2 90-92 at rest. Encouraged deep breathing and proning. Patient verbalized understanding. Last BM 02/21 with BSC at bedside. Noted LLE swelling/lymphedema. MARIELLA PICC line infusing IV fluids. Updated patient on plan of care. Will continue to monitor.
[2020-02-23] MEDS: VITAMIN D 400 IU TAB PO SCH ×2 (08:56→20:25)
[2020-02-23] MEDS: DEXAMETHASONE 10 MG/ML VIAL IVP SCH (08:57)
[2020-02-23] MEDS: ZINC SULF 220 MG CAP PO SCH ×2 (09:01→20:25)
[2020-02-23 09:36] LABS: ANION GAP 10.9 (8-16); CARBON DIOXIDE 26.6 mmol/L (21-32); CREATININE 0.7 mg/dL (0.6-1.3); POTASSIUM 4.5 mmol/L (3.5-5.1)
[2020-02-23 09:39] LABS: ALBUMIN 2.2 g/dL (3.4-5.0); ANION GAP 10.8 (8-16); CARBON DIOXIDE 27.3 mmol/L (21-32); CREATININE 0.8 mg/dL (0.6-1.3); POTASSIUM 4.1 mmol/L (3.5-5.1); TOTAL BILIRUBIN 0.6 mg/dL (0.0-1.0)
[2020-02-23 10:01] LABS: HEMATOCRIT 42.2 % (36-52); HEMOGLOBIN 13.9 g/dL (12.0-18.0); MEAN CORPUSCULAR HEMOGLOBIN 30 pg (27-31); MEAN CORPUSCULAR HGB CONC 33 g/dL (33-37); MEAN CORPUSCULAR VOLUME 90.6 fL (80-94); PLATELET COUNT (AUTO) 270 K/uL (140-450); RED BLOOD CELL COUNT(AUTO) 4.65 MIL/uL (4.20-6.10); RED CELL DISTRIBUTION WIDTH 15.2 % (11.6-13.7); WHITE BLOOD COUNT (AUTO) 17.3 K/uL (4.8-10.8)
--- NOTE | 2020-02-23 10:45 | NUR ---
Dr Harris at bedside, orders for ABG. Notified respiratory therapist.
--- NOTE | 2020-02-23 11:17 | NUR ---
CALLED DR Lily PAIGE [phone] REVIEWED ABG SAMPLE REPORT COMPENSATED WITH MODERATE HYPOXEMIA SATURATION 91%-92% ON SUPPLEMENTAL OXYGEN AT 15LPM VIA NON REBREATHER HR 101 RR +40 BPM ORANGE PICKER MACHINE OPERATOR RECOMMENDATION INFUSED SUPPLEMENTAL OXYGENT VIA NASAL CANNULA 2-6 LPM AND PRONING POSITION
--- NOTE | 2020-02-23 11:32 | NUR ---
ADDED SUPPLEMENTAL OXYGEN AT 2 LPM VIA NC TO NON REBREATHER AT 15 LPM AIR BRAKES INSPECTOR TO MONITOR REGISTRY/RN NOTIFIED
--- NOTE | 2020-02-23 14:31 | NUR ---
ASLEEP EASILY AWAKENS PATIENT STATES THAT HE IS UNABLE TO FULLY PRONE ONLY ON SIDE POSITION CURRENTLY LFW POSITION OM LEFT SIDE RESTING WELL SKIN TONE PINK SUPPLEMENTAL OXYGEN AT 15 LPM VIA NON REBREATHER + 2 LPM VIA NASAL CANNULA SATURATION 91%-92%
[2020-02-23] MEDS: ALBUTEROL HFA MDI 90 MCG/ACTUATION 8 GM INH PRN (14:44)
[2020-02-23] MEDS ORDERED: OSELTAMIVIR PHOSPHATE 75 MG CAP PO SCH (14:45)
[2020-02-23] MEDS: AZITHROMYCIN 500 MG in DEXTROSE 5% 250 ML IV SCH ×2 (16:04→20:29)
[2020-02-23 16:19] LABS: LYMPHOCYTES % (MANUAL) 3 % (20-46); MONOCYTES % (MANUAL) 5 % (5-12)
--- NOTE | 2020-02-23 17:35 | NUR ---
Convalescent plasma started. No S/S reactions noted.
--- NOTE | 2020-02-23 18:57 | NUR ---
Convalescent plasma still infusing. No S/S reactions. Vital signs stable. on NRB 15L + 2L NC no complaints at this time. Will endorse to night RN.
--- NOTE | 2020-02-23 19:15 | NUR ---
RECEIVED BEDSIDE REPORT FROM DAY SHIFT NURSE FOR CONTINUITY OF CARE. PT IS AWAKE AND ALERT, A&OX4. ON 2L O2 NC AND NRB 15 L O2. O2 SAT AT 92% WITH BREATHING UNLABORED. PT IS SR ON TELE MONITORING. URINAL AT THE BEDSIDE WITHIN REACH. AMBULATORY WITH ASSISTANCE, BEDREST CURRENTLY. SKIN IS WARM, DRY, AND INTACT. LEFT LOWER EXTREMITY LYMPHEDEMA. RIGHT UA PICC LINE IN PLACE INFUSING PLASMA AT THIS TIME. WILL CONTINUE TO MONITOR PLASMA. PT IS STABLE. PLAN OF CARE DISCUSSED.
--- NOTE | 2020-02-23 19:30 | NUR ---
CONVALESCENT PLASMA INFUSION HAS FINISHED. PT IS STABLE AT THIS TIME. WILL CHECK VITALS WITHIN 15 MINUTES. NS IS NOW FLUSHING THROUGH IV. WILL CONTINUE TO MONITOR PT.
--- NOTE | 2020-02-23 19:45 | NUR ---
NS IS INFUSING THROUGH THE IV AFTER THE CONVALESCENT PLASMA INFUSION. BP 150/87, HR 100, RR 20, TEMP 98.4 F, NO PAIN NOTED. NO SIGNS OF AN ADVERSE REACTION. PT IS STABLE.
--- NOTE | 2020-02-23 20:40 | NUR ---
SPOKE TO SON, WILY, WITH PERMISSION FROM PT. INFORMED HIM ABOUT THE STATUS OF THE PT AND PROCEDURES DONE TODAY. ALL QUESTIONS WERE ANSWERED.
--- NOTE | 2020-02-23 21:30 | NUR ---
PT IS UP AT THE BEDSIDE, EATING DINNER. PT WAS ALSO PROVIDED ANOTHER BLANKET AND WATER. IV FLUIDS ARE PATENT AND INFUSING. PICC LINE IS FLUSHING WELL. NO DISTRESS NOTED. O2 SAT IS 90%. WORK OF BREATHING IS UNLABORED. PT WAS INSTRUCTED TO TAKE A FEW BITES AND THEN PLACE NRB MASK BACK ON FACE TO GET ENOUGH OXYGEN IN THE BLOOD. PT VERBALIZED UNDERSTANDING.
--- NOTE | 2020-02-23 22:28 | NUR ---
ROUNDED ON PT. O2 SAT WAS 85% ON 15L NRB AND 2L NC O2. PT WAS SITTING UPRIGHT AND TEXTING ON THE CELL PHONE. PT SAID HE WAS UPSET THAT HE KEPT GETTING WOKEN UP BY PHONE CALLS. INSTRUCTED PATIENT TO TAKE A FEW DEEP BREATHS AND TO RELAX IN SEMI FOWLERS POSITION. O2 SAT IS NOW 90%. WILL CONTINUE TO MONITOR PT'S O2 AND WORK OF BREATHING.
[2020-02-24] VITALS: BP 159/82
--- NOTE | 2020-02-24 00:30 | NUR ---
PT IS ASLEEP. CHEST RISE AND FALL IS SYMMETRICAL. BREATHING IS SHALLOW AND LABORED. O2 SAT IS 90%. NRB AND NASAL CANNULA IN PLACE. PT IS STABLE.
--- NOTE | 2020-02-24 01:39 | NUR ---
MONITORED PT'S BREATHING AND NO DISTRESS NOTED. O2 SAT IS 92%. IV FLUIDS ARE PATENT AND INFUSING ORDERED. BED IS IN THE LOWEST POSITION. CELL PHONE IS ON THE TABLE AT BEDSIDE. COMMODE IS AT BEDSIDE FOR BOWEL MOVEMENTS AND URINAL IN REACH. WILL CONTINUE TO MONITOR.
--- NOTE | 2020-02-24 02:53 | NUR ---
ASKED RT TO ASSESS PT'S WORK OF BREATHING. RT JJ AND ME AT BEDSIDE ASSESSING PT. PT'S O2 SAT IS 90% ON 15L O2 NRB AND 2L O2 NC. TALKED WITH PATIENT AND RT WILL GIVE PT A BREATHING TX LATER IF PT NEEDS IT. PT STATES HE HAS NO SOB OR DIFFICULTY BREATHING. PT STABLE AT THIS TIME.
[2020-02-24 04:00] VITALS: BP 156/96
--- NOTE | 2020-02-24 05:00 | NUR ---
SWITCHED FLUIDS TO NEW BAG. IV IS PATENT AND INFUSING INTO THE PICC LINE. PT IS RESTING WITH NO RESPIRATORY DISTRESS NOTED. O2 SAT IS AT 92%. NO COUGHING OR SOB AT THIS TIME. URINAL WAS EMPTIED 300 ML.
--- NOTE | 2020-02-24 07:15 | NUR ---
ENDORSED PT TO DAY SHIFT NURSE FOR CONTINUITY OF CARE. PT IS STABLE AT THIS TIME. O2 SAT IS 92%. NO RESPIRATORY DISTRESS NOTED. PLAN OF CARE DISCUSSED.
[2020-02-24 08:00] VITALS: BP 146/92
--- NOTE | 2020-02-24 08:15 | NUR ---
PATIENT IS AOX4, SINUS RHYTHM-SINUS TACHY ON SUPPLY CHAIN PLANNER. RESPIRATIONS LABORED ON 15L NONREBREATHER + 2L NASAL CANNULA. UP AND EATING BREAKFAST, WITH DYSPNEA NOTED. PATIENT SAYS HE "FEELS FINE." TOLERATING DIET WELL WITH NO NAUSEA/VOMITING. IV FLUIDS INFUSING. NO PAIN NOTED. ENCOURAGED DEEP BREATHING AND PRONING. WILL CONTINUE TO MONITOR.
[2020-02-24] MEDS: ZINC SULF 220 MG CAP PO SCH ×2 (09:00→20:43)
[2020-02-24] MEDS: DEXAMETHASONE 10 MG/ML VIAL IVP SCH (09:01)
[2020-02-24] MEDS: VITAMIN D 400 IU TAB PO SCH ×2 (09:01→20:44)
[2020-02-24 09:58] LABS: BASOPHILS % (AUTO) 0.2 % (0.0-2.0); EOSINOPHILS % (AUTO) 0.2 % (0.0-4.0); HEMATOCRIT 40.5 % (36-52); HEMOGLOBIN 13.4 g/dL (12.0-18.0); LYMPHOCYTES # (AUTO) 0.7 K/uL (2.0-11.5); MEAN CORPUSCULAR HEMOGLOBIN 30 pg (27-31); MEAN CORPUSCULAR HGB CONC 33 g/dL (33-37); MEAN CORPUSCULAR VOLUME 90.8 fL (80-94); MONOCYTES # (AUTO) 0.8 K/uL (0.8-1.0); MONOCYTES % (AUTO) 5.3 % (1.7-9.3); NEUTROPHILS # (AUTO) 13.4 K/uL (1.8-7.7); NEUTROPHILS % (AUTO) 89.3 % (42.2-75.2); PLATELET COUNT (AUTO) 273 K/uL (140-450); RED BLOOD CELL COUNT(AUTO) 4.46 MIL/uL (4.20-6.10); RED CELL DISTRIBUTION WIDTH 14.8 % (11.6-13.7)
[2020-02-24 10:07] LABS: ALBUMIN 2.2 g/dL (3.4-5.0); ANION GAP 11.9 (8-16); CARBON DIOXIDE 28.2 mmol/L (21-32); CREATININE 0.6 mg/dL (0.6-1.3); MAGNESIUM 1.8 mg/dL (1.8-2.4); PHOSPHORUS 2.8 mg/dL (2.5-4.9); POTASSIUM 4.1 mmol/L (3.5-5.1); TOTAL BILIRUBIN 0.6 mg/dL (0.0-1.0)
[2020-02-24 12:00] VITALS: BP 146/90
[2020-02-24 16:00] VITALS: BP 151/104
[2020-02-24] MEDS: AZITHROMYCIN 500 MG in DEXTROSE 5% 250 ML IV SCH (16:03)
[2020-02-24] MEDS: NACL 0.9% 1,000 ML IV SCH ×2 (16:03→22:10)
[2020-02-24] MEDS: PETROLATUM WHITE 30 GM TUBE TP SCH (16:04)
--- NOTE | 2020-02-24 18:42 | NUR ---
PATIENT REMAINS ON 15L NONREBREATHER AND 2L NASAL CANNULA SPO2 89-91% AT REST. NOTED DYSPNEA ON EXERTION. PT TOLERATING MEALS WELL WITH NO NAUSEA/VOMITING. DENIES PAIN. UPDATED PT ON PLAN OF CARE. WILL ENDORSE TO NIGHT RN.
--- NOTE | 2020-02-24 19:10 | NUR ---
RECEIVED BEDSIDE REPORT FROM DAY SHIFT. PATIENT IS AWAKE, ALERT, AND COOPERATIVE. RESPIRATION EVEN UNLABORED ON 15L NON-REBREATHER MASK WITH 2L NC O2. NO DISTRESS NOTED. SKIN IS WARM AND DRY. RIGHT UPPER ARM WITH PICC LINE NOTED. PLAN OF CARE WAS DISCUSSED. ALL SAFETY MEASURES IN PLACE. BED IS AT LOW POSITION. CALL LIGHT WITHIN REACH. WILL CONTINUE TO MONITOR.
[2020-02-24 20:00] VITALS: BP 141/82
--- NOTE | 2020-02-24 20:44 | NUR ---
ALL SCHEDULED MEDS WERE GIVEN PER ORDER. NO ASE NOTED. WILL CONTINUE TO MONITOR.
--- NOTE | 2020-02-24 20:54 | NUR ---
PATIENT IS COMPLAINING OF SOB AND ASKING FOR BREATHING TREATMENT. ASSESSMENT DONE. PATIENT STATING 85% ON 15L NON-REBREATHER MASK AND 2L NC. INSTRUCT PATIENT TO LAY ON HIS SIDE. OXYGEN LEVEL IMPROVED TO 88%. WILL CALL RT FOR BREATHING TX.
--- NOTE | 2020-02-24 20:57 | NUR ---
PAGED RT. WILL CONTINUE TO MONITOR
[2020-02-24] MEDS: ALBUTEROL HFA MDI 90 MCG/ACTUATION 8 GM INH PRN (21:08)
--- NOTE | 2020-02-24 23:22 | NUR ---
CHECKED PATIENT. PATIENT SLEEPING RESPIRATION EVEN UNLABORED ON 15L NON-REBREATHER MASK WITH 2L NC O2. SATING 89%. NO DISTRESS NOTED. WILL CONTINUE TO MONITOR.
[2020-02-25] VITALS: BP 139/91
--- NOTE | 2020-02-25 02:52 | NUR ---
ROUNDS MADE. PATIENT SLEEPING RESPIRATION EVEN UNLABORED ON 15L NON-REBREATHER MASK WITH 2L NC O2. NO DISTRESS NOTED. WILL CONTINUE TO MONITOR
[2020-02-25 04:00] VITALS: BP 154/107
--- NOTE | 2020-02-25 04:29 | NUR ---
FOUND PATIENT WITH O2 OF 65%. PATIENT IS VERY TACHYPNEIC AND TACHYCARDIC. PER PATIENT HIS HAVING SOB. ENCOURAGE PRONE POSITIONING. PATIENT REFUSED. PER PATIENT HE CANNOT TOLERATE PRONE BECAUSE OF HIS BACK. PLACED PATIENT ON SIDE LYING POSITION. O2 IMPROVE AND SATING 80%. PAGED RT FOR BREATHING TX. WILL CONTINUE TO MONITOR.
--- NOTE | 2020-02-25 04:30 | NUR ---
CALLED TO BEDSIDE PT DESAT (79-82%) NRB READJUSTED AND ENCOURAGED PT TO PRONE BUT PT STATED HE CANNOT PRONE DUE TO BACK INJURY PT IS IN SOMEWHAT OF A LATERAL POSITION AT THIS TIME PT CURRENT SPO2 87% AND APPEARS TO BE CLIMBING SLOWLY PT REFUSES MDI AT THIS TIME BUT STATED HE WOULD LIKE ONE LATER NO AUDIBLE WHEEZES BUT SLIGHT RHONCHI WAS PRESENT
--- NOTE | 2020-02-25 05:00 | NUR ---
PATIENT CONTINUE TO DESAT TO LOW 80s/HIGH 70s. RT AT BEDSIDE. PT REFUSED BREATHING TX. WILL CONTINUE TO MONITOR.
--- NOTE | 2020-02-25 06:30 | NUR ---
PATIENT CONTINUE TO DESAT TO LOW 80'S/HIGH 70'S. PAGED RT AGAIN.
--- NOTE | 2020-02-25 07:20 | NUR ---
RT AT BEDSIDE
--- NOTE | 2020-02-25 07:26 | NUR ---
ENDORSED PATIENT TO DAY SHIFT NURSE FOR CONTINUITY OF CARE
--- NOTE | 2020-02-25 07:28 | NUR ---
RECEIVED PT FROM RECRUITMENT COORDINATOR NURSE, RT IS AT BEDSIDE TRANSITIONING TO BIPAP MACHINE, MARIELLA PICC LINE W/60 ML NS, PT IS AWAKE IN BED, SAFETY AND FALL PRECAUTIONS IN PLACE, WILL CONTINUE TO MONITOR
--- NOTE | 2020-02-25 07:28 | NUR ---
REVIEWED PATIENT STATUS WITH DR. RAMESH TRIMBLE PATIENT PRESENTING WITH DECLINING SATURATIONS IN 70'S % TACHYPNEIC +40 BPM [employer] [facility] IF AVAILABLE OR BIPAP MD STATES "TRY TO GET SATURATION'S UP"
--- NOTE | 2020-02-25 07:35 | NUR ---
PATIENT PRESENTING WITH DECLINING SATURATION TO 70'S % TACHYPNEIC +40 BPM LOC AWAKE AND ALERT VERBALLY RESPONSIVE TO FANCY PACKER VERBAL COMMANDS PLACED PATIENT ON BIPAP TO MASK WITH APPROPRIATE SETTINGS NOTED ON BIPAP FLOW SHEET FANCY PACKER TO GIVE COURTESY CALL TO DR. RAMESH TRIMBLE
--- NOTE | 2020-02-25 07:57 | NUR ---
PAGED DR. RAMESH CHEN [phone] TO REVIEW PATIENT STATUS ON BIPAP TO MASK
[2020-02-25 08:00] VITALS: BP 129/68
--- NOTE | 2020-02-25 08:02 | NUR ---
CALL BACK FROM DR. RAMESH TRIMBLE [facility] STATED TO MD THAT THIS A COURTESY CALL (CLOSED LOOP) TO REVIEW PATIENT STATUS ON BIPAP TO MASK NOTED ON BIPAP FLOW SHEET STATES "OK"
[2020-02-25] MEDS: ZINC SULF 220 MG CAP PO SCH ×2 (09:00→21:05)
[2020-02-25] MEDS: VITAMIN D 400 IU TAB PO SCH ×2 (09:00→21:05)
[2020-02-25] MEDS: DEXAMETHASONE 10 MG/ML VIAL IVP SCH (09:01)
[2020-02-25] MEDS: PETROLATUM WHITE 30 GM TUBE TP SCH ×2 (09:04→21:24)
--- NOTE | 2020-02-25 09:21 | NUR ---
SCHEDULED MEDICATION ADMINISTERED, EDUCATION PROVIDED, PT VERBALIZED UNDERSTANDING, WILL CONTINUE TO MONITOR.
[2020-02-25 10:02] LABS: HEMATOCRIT 42.5 % (36-52); HEMOGLOBIN 13.9 g/dL (12.0-18.0); MEAN CORPUSCULAR HEMOGLOBIN 30 pg (27-31); MEAN CORPUSCULAR HGB CONC 33 g/dL (33-37); MEAN CORPUSCULAR VOLUME 91.2 fL (80-94); PLATELET COUNT (AUTO) 290 K/uL (140-450); RED BLOOD CELL COUNT(AUTO) 4.66 MIL/uL (4.20-6.10); RED CELL DISTRIBUTION WIDTH 15.4 % (11.6-13.7); WHITE BLOOD COUNT (AUTO) 16.8 K/uL (4.8-10.8)
[2020-02-25 10:03] LABS: BASOPHILS % (AUTO) 0.1 % (0.0-2.0); EOSINOPHILS # (AUTO) 0.1 K/uL (0-0.4); EOSINOPHILS % (AUTO) 0.5 % (0.0-4.0); LYMPHOCYTES # (AUTO) 0.7 K/uL (2.0-11.5); LYMPHOCYTES % (AUTO) 3.9 % (20.5-51.1); MONOCYTES % (AUTO) 5.6 % (1.7-9.3); NEUTROPHILS % (AUTO) 89.7 % (42.2-75.2)
[2020-02-25 11:11] LABS: ANION GAP 13.6 (8-16); CARBON DIOXIDE 28.6 mmol/L (21-32); CREATININE 0.7 mg/dL (0.6-1.3); POTASSIUM 4.2 mmol/L (3.5-5.1); TOTAL BILIRUBIN 0.6 mg/dL (0.0-1.0)
[2020-02-25 11:12] LABS: ALBUMIN 2.2 g/dL (3.4-5.0); MAGNESIUM 1.8 mg/dL (1.8-2.4); PHOSPHORUS 2.8 mg/dL (2.5-4.9)
[2020-02-25 12:00] VITALS: BP 125/76
--- NOTE | 2020-02-25 12:03 | NUR ---
PT IS RESTING IN BED, WATER PROVIDED PER PT REQUEST, O2 SATURATION 93%, WILL CONTINUE TO MONITOR.
--- NOTE | 2020-02-25 12:53 | NUR ---
DC PLANING PT HAS [facility] EVALUATION CALLED PT'S [phone] LEFT A MESSAGE. FAXED TO [facility] AWAITING FOR FAMILY TO CALL BACK. CM TO FOLLOW Addendum: 02/25/20 at 1420 by Emily Felix RN DC PLANNING: CALLED PT'S DAUGHTER [phone] SPOKE WITH JORGE EXPLAINED AND UPDATED PT'S CLINICAL AND THE DC PLAN PER JORGE REQUESTED THE MD TO CALL HER AND WILL DISCUSS WITH HER MOM AND BROTHER AND CALL BACK. RECEIVED A CALL FROM [facility] STILL WORKING ON IT HAS SOME ISSUES WITH [employer]ANCE IS [employer] AND NEEDED CLARIFICATION AND AWAITING FROM THE BUSINESS OFFICE. CM TO FOLLOW. Addendum: 02/26/20 at 1356 by Emily Felix RN DC PLANING: RECEIVED A CALL FROM GHANSHYAM AT [facility] [place] [facility] [place]IENT UNDER THE CARE OF DR MACIEL AWAITING FOR ROOM. Addendum: 02/27/20 at 1602 by Emily Felix RN DC PLANNING: SPOKE WITH PT'S SON WILY AND DAUGHTER JORGE AGREED WITH [facility] AND ALSO GHANSHYAM FROM [facility] CALLED THEM ANSWERED ALL QUESTION . [facility] WITH [facility] WILL CALL . AWAITING FOR BED. CM TO FOLLOW Addendum: 02/27/20 at 1700 by Corina Loyd CM DC STEAMFITTER: PATIENT HAS BEEN ACCEPTED AT [facility] [place] [address] MACIEL NUMBER FOR REPORT [phone]. ACTIVATED WILL CALL TRANSPORTATION FOR 7:30 PM WITH [facility] [phone]. JUAN MATIAS NOTIFIED. Addendum: 02/28/20 at 1102 by Emily Felix RN DC PLANNING: RECEIVED A CALL FROM [facility],SPOKE WITH ELLIE G[facility]BS WILL ACCEPT PATIENT GOING TO ROOM 103 # TO GIVE REPORT [phone]. AIRCRAFT DISPATCHER TIME 3PM NOTIFIED DANITA MARTINEZ CM TO FOLLOW Addendum: 02/28/20 at 1113 by Corina Loyd CM DC STEAMFITTER: TRANSPORTATION HAS BEEN SET UP WITH [facility] FOR 3:00 PM. PATIENT GOING TO [facility] ROOM 103 Addendum: 02/28/20 at 1213 by Emily Felix RN DC PLANNING: PER RN PT IS SATING 88% ON BIPAP [facility] CAN NOT ACCEPT PATIENT HOD THE TRANSFER FOR NOW CM TO FOLLOW Addendum: 02/29/20 at 1559 by Emily Felix RN DC PLANING: PT INTUBATED SEDATED FIO2 100% SATING 85% CM TO FOLLOW Addendum: 03/03/20 at 1608 by Jennifer Garrison CM REMAINS ORALLY INTUBATED TO VENT, FIO2 90%, PEEP 12, O2 SAT 96%. SEDATED WITH FENTANYL AND PROPOFOL. ON LEVOPHED DRIP. ON ZOSYN, DECADRON. PER PULMO - CONTINUE MECHANICAL VENTILATION
[2020-02-25 16:00] VITALS: BP 145/84
[2020-02-25] MEDS: NACL 0.9% 1,000 ML IV SCH (16:26)
[2020-02-25] MEDS: AZITHROMYCIN 500 MG in DEXTROSE 5% 250 ML IV SCH (16:28)
--- NOTE | 2020-02-25 16:44 | NUR ---
SCHEDULED MEDICATION ADMINISTERED, EDUCATION PROVIDED, PT VERBALIZED UNDERSTANDING, WILL CONTINUE TO MONITOR.
--- NOTE | 2020-02-25 18:11 | NUR ---
PT O2 SATURATION CONTINUES TO FLUCTUATED, RT WAS NOTIFIED, WILL CONTINUE TO MONITOR, O2 IS CURRENTLY 90% ON BIPAP, WILL MAKE FREQUENT ROUNDS.
[2020-02-25] MEDS ORDERED: LOVENOX 1MG/KG Q12H SUBQ SCH (18:15)
--- NOTE | 2020-02-25 18:25 | NUR ---
02/25/20 RD FOLLOW UP COMPLETED PLEASE REFER TO NUTRITION ASSESSMENT UNDER CARE ACTIVITY FOR ESTIMATED NUTRITIONAL NEEDS. 1. RECOMMEND GROUND DIET TOLERATED 2. RECOMMEND ENSURE CLEAR TID 3. ENCOURAGE INCREASING PO INTAKE 4. CONSIDER PARENTERAL NUTRITION IF PO INTAKE <50% 5. RD TO FOLLOW-UP 2-3 DAYS, HIGH RISK GAMALIEL NGUYEN RD
--- NOTE | 2020-02-25 19:20 | NUR ---
ENDORSED PT TO PROBE OPERATOR NURSE FOR CONTINUITY OF CARE.
--- NOTE | 2020-02-25 19:21 | NUR ---
RECD. RESTING IN BED, AWAKE, A/OX4. WITH SOB ON EXERTION, ON BIPAP, 02 SATURATION - 91%. USES URINAL, ALSO BSC. NS AT 60 ML/HR INFUSING, RIGHT UPPER ARM PICC LINE. SKIN COLOR NORMAL PER ETHNICITY. SAFETY ERXMVM5DS ENFORCED. BED IN THE LOWEST POSITION, CALL LIGHT IN REACH. MEDICATIONS AND TREATMENT FOR THE SHIFT DISCUSSED. VERBALIZED UNDERSTANDING. DENIES PAIN 0/10.
[2020-02-25 20:00] VITALS: BP 133/72
--- NOTE | 2020-02-25 21:10 | NUR ---
DUE MEDICATIONS GIVEN. ASSISTED WITH BIPAP TO BE ABLE TO TAKE MEDS.
[2020-02-25] MEDS: ENOXAPARIN 100 MG/ML SYR SUBQ SCH (21:11)
--- NOTE | 2020-02-25 21:30 | NUR ---
APPLE JUICE GIVEN AND BEDSIDE TABLE CUPS, STRAW AND SMALL TRASH CONTAINER.
--- NOTE | 2020-02-25 23:00 | NUR ---
RESTING IN BED, REQUESTED LIGHT TO BE TURN OFF. MADE COMFORTABLE IN BED. ALL NEEDS ATTENDED.
[2020-02-26] VITALS: BP 141/85
--- NOTE | 2020-02-26 01:00 | NUR ---
SLEEPING COMFORTABLY IN BED.
--- NOTE | 2020-02-26 03:00 | NUR ---
LAYING ON HIS LEFT SIDE, COMFORTABLE. NO SOB NOTED.
[2020-02-26 04:00] VITALS: BP 149/94
--- NOTE | 2020-02-26 05:00 | NUR ---
NO SOB NOTED, LYING SUPINE IN BED, ASLEEP.
--- NOTE | 2020-02-26 06:30 | NUR ---
Patient's Plan of Care was discussed and reviewed with TAPPER HAND: STACEY DENISE
--- NOTE | 2020-02-26 07:00 | NUR ---
RESPIRATORY STATUS REMAIN STABLE. WILL ENDORSE TO AM SHIFT NURSE FOR CONTINUITY OF CARE.
--- NOTE | 2020-02-26 07:05 | NUR ---
RECEIVED REPORT FROM NIGHT NURSE PATIENT IS SLEEPING ON BIPAP AT 100% USES THE URINAL AND BEDSIDE COMMODE, SKIN INTACT, IV SITES INTACT AND PATENT ON RIGHT UPPER ARM PICC LINE, PLASMA RECEIVED, SAFETY MEASURES IN PLACE AND CALL LIGHT WITHIN REACH.
[2020-02-26 08:00] VITALS: BP 156/99
[2020-02-26 08:51] LABS: BASOPHILS % (AUTO) 0.1 % (0.0-2.0); EOSINOPHILS # (AUTO) 0.1 K/uL (0-0.4); EOSINOPHILS % (AUTO) 0.9 % (0.0-4.0); HEMATOCRIT 41.4 % (36-52); HEMOGLOBIN 13.5 g/dL (12.0-18.0); LYMPHOCYTES # (AUTO) 0.6 K/uL (2.0-11.5); LYMPHOCYTES % (AUTO) 4.1 % (20.5-51.1); MEAN CORPUSCULAR HEMOGLOBIN 30 pg (27-31); MEAN CORPUSCULAR HGB CONC 33 g/dL (33-37); MEAN CORPUSCULAR VOLUME 91.6 fL (80-94); MONOCYTES # (AUTO) 0.7 K/uL (0.8-1.0); MONOCYTES % (AUTO) 4.8 % (1.7-9.3); NEUTROPHILS # (AUTO) 13.8 K/uL (1.8-7.7); NEUTROPHILS % (AUTO) 90.1 % (42.2-75.2); PLATELET COUNT (AUTO) 264 K/uL (140-450); RED BLOOD CELL COUNT(AUTO) 4.51 MIL/uL (4.20-6.10); RED CELL DISTRIBUTION WIDTH 15.5 % (11.6-13.7); WHITE BLOOD COUNT (AUTO) 15.3 K/uL (4.8-10.8)
--- NOTE | 2020-02-26 09:00 | NUR ---
MEDICATION DUE GIVEN VITAL SIGNS TAKEN BP 156/99 OK 114 AND SATURATION AT 87%.
[2020-02-26] MEDS: VITAMIN D 400 IU TAB PO SCH ×2 (09:24→20:49)
[2020-02-26] MEDS: ZINC SULF 220 MG CAP PO SCH ×2 (09:24→20:49)
[2020-02-26] MEDS: DEXAMETHASONE 10 MG/ML VIAL IVP SCH (09:24)
[2020-02-26] MEDS: ENOXAPARIN 100 MG/ML SYR SUBQ SCH ×2 (09:25→20:49)
[2020-02-26] MEDS: PETROLATUM WHITE 30 GM TUBE TP SCH ×2 (09:27→20:50)
[2020-02-26 09:28] LABS: ANION GAP 11.9 (8-16); CARBON DIOXIDE 29.8 mmol/L (21-32); CREATININE 0.7 mg/dL (0.6-1.3); MAGNESIUM 1.8 mg/dL (1.8-2.4); PHOSPHORUS 2.8 mg/dL (2.5-4.9); POTASSIUM 4.7 mmol/L (3.5-5.1); TOTAL BILIRUBIN 0.6 mg/dL (0.0-1.0)
[2020-02-26 12:00] VITALS: BP 152/98
--- NOTE | 2020-02-26 12:00 | NUR ---
MEDICATION DUE GIVEN AND ABLE TO DRINK AND PATIENT IS STABLE NO DISTRESS NOTED
[2020-02-26] MEDS: PIPERACILLIN/TAZOBACTAM 3.375 GM in DEXTROSE 5% 50 ML IV SCH ×2 (12:04→17:12)
--- NOTE | 2020-02-26 14:00 | NUR ---
MADE ROUNDS AT THIS TIME PATIENT ABLE TO DRINK AND OXYGEN SATURATION AT 87%
[2020-02-26 16:00] VITALS: BP 124/58
[2020-02-26] MEDS: NACL 0.9% 1,000 ML IV SCH (17:30)
--- NOTE | 2020-02-26 17:52 | NUR ---
MEDICATION DUE GIVEN AND RESPIRATORY THERAPIST CHECKED ON THE PATIENT BIPAP 100% RATE 16 SATURATION AT 90%
--- NOTE | 2020-02-26 19:44 | NUR ---
ENDORSED TO NIGHT NURSE FOR CONTINUITY OF CARE.
--- NOTE | 2020-02-26 19:45 | NUR ---
RECD. RESTING IN BED, AWAKE, A/OX4, OBESE. WITH SOB ON EXERTION, WHEN TALKING AND DESATURATES TO 80's WHEN OFF BIPAP MACHINE. O2 SATURATION AT THIS TIME IS 90%. ENCOURAGED TO ALTERNATELY TURN TO THE RIGHT OR LEFT AND NOT ALWAYS IN THE SUPINE POSITION. SAFETY MEASURES ENFORCED. BED IN THE LOWEST POSITION, CALL LIGHT IN REACH. USES THE URINAL. POC DISCUSSED WITH RN TO PATIENT. VERBALIZED UNDERSTANDING. DENIES PAIN 0/10.
[2020-02-26 20:00] VITALS: BP 137/85
--- NOTE | 2020-02-26 20:49 | NUR ---
DUE MEDICATIONS FOR THE NIGHT GIVEN. RT CAME AND CHECKED PATIENT, ASSISTED PATIENT TO GO UP HIGHER IN BED. DESATURATES TO 72% WHEN OF BIPAP. BACK TO 88 - 90% ON BIPAP.
--- NOTE | 2020-02-26 23:49 | NUR ---
Patient's Plan of Care was discussed and reviewed with HOT MILL OPERATOR: STACEY DENISE.
[2020-02-27] VITALS: BP 127/88
--- NOTE | 2020-02-27 | NUR ---
SLEEPING COMFORTABLY IN BED.
[2020-02-27] MEDS: PIPERACILLIN/TAZOBACTAM 3.375 GM in DEXTROSE 5% 50 ML IV SCH ×4 (00:05→17:20)
--- NOTE | 2020-02-27 02:00 | NUR ---
CHECKED PATIENT, LYING ON HIS LEFT SIDE, 02 SAT - 89% ON BIPAP. NO SOB NOTED.
[2020-02-27] MEDS: NACL 0.9% 1,000 ML IV SCH ×3 (03:47→21:55)
[2020-02-27 04:00] VITALS: BP 148/91
--- NOTE | 2020-02-27 04:00 | NUR ---
SR ON TELE MONITORING, ON HIS RIGHT SIDE ASLEEP.
[2020-02-27] MEDS ORDERED: LORazepam 2 MG/ML VIAL IM/IVP PRN (05:35)
--- NOTE | 2020-02-27 06:00 | NUR ---
NO RESPIRATORY DISTRESS NOTED, 02 SAT - 90%.
--- NOTE | 2020-02-27 07:00 | NUR ---
CONDITION REMAIN STABLE. WILL ENDORSE TO AM SHIFT NURSE FOR CONTINUITY OF CARE.
--- NOTE | 2020-02-27 07:05 | NUR ---
RECEIVED REPORT FROM NIGHTSHIFT NURSE. PT RESTING IN BED. ABLE TO MAKE NEEDS KNOWN. RESPIRATIONS EVEN AND UNLABORED WITH NO SOB OR RESPIRATORY DISTRESS. SKIN WARM AND DRY TO TOUCH. IV SITE IN R UPPER ARM PICC LINE IS CLEAN, DRY, AND INTACT. SAFETY MEASURES IN PLACE. WILL CONTINUE TO MONITOR
[2020-02-27 08:00] VITALS: BP 133/80
[2020-02-27 08:25] LABS: HEMATOCRIT 42.2 % (36-52); HEMOGLOBIN 13.8 g/dL (12.0-18.0); MEAN CORPUSCULAR HEMOGLOBIN 30 pg (27-31); MEAN CORPUSCULAR HGB CONC 33 g/dL (33-37); MEAN CORPUSCULAR VOLUME 91.6 fL (80-94); PLATELET COUNT (AUTO) 258 K/uL (140-450); RED BLOOD CELL COUNT(AUTO) 4.61 MIL/uL (4.20-6.10); RED CELL DISTRIBUTION WIDTH 15.3 % (11.6-13.7); WHITE BLOOD COUNT (AUTO) 14.2 K/uL (4.8-10.8)
[2020-02-27 08:58] LABS: EOSINOPHILS % (MANUAL) 1 % (0-4)
[2020-02-27 08:59] LABS: LYMPHOCYTES % (MANUAL) 5 % (20-46); MONOCYTES % (MANUAL) 6 % (5-12)
[2020-02-27] MEDS: ZINC SULF 220 MG CAP PO SCH ×2 (09:52→21:25)
[2020-02-27] MEDS: VITAMIN D 400 IU TAB PO SCH ×2 (09:53→21:25)
[2020-02-27] MEDS: PETROLATUM WHITE 30 GM TUBE TP SCH ×2 (09:53→21:27)
[2020-02-27] MEDS: DEXAMETHASONE 10 MG/ML VIAL IVP SCH (09:54)
[2020-02-27] MEDS: ENOXAPARIN 100 MG/ML SYR SUBQ SCH ×2 (09:55→21:26)
--- NOTE | 2020-02-27 10:11 | NUR ---
ADMINISTERED SCHED MED PRESCRIBED PER MD ORDER. PT TOLERATED WELL. MEDICATION EDUCATION PERFORMED. PT VERBALIZED UNDERSTANDING. SAFETY MEASURES IN PLACE. WILL CONTINUE TO MONITOR
[2020-02-27 12:00] VITALS: BP 125/87
--- NOTE | 2020-02-27 12:03 | NUR ---
ADMINISTERED SCHED MED PRESCRIBED PER MD ORDER. PT TOLERATED WELL. MEDICATION EDUCATION PERFORMED. PT VERBALIZED UNDERSTANDING. SAFETY MEASURES IN PLACE. WILL CONTINUE TO MONITOR
[2020-02-27 12:11] LABS: ANION GAP 11.7 (8-16); CARBON DIOXIDE 30.1 mmol/L (21-32); CREATININE 0.8 mg/dL (0.6-1.3); PHOSPHORUS 3.2 mg/dL (2.5-4.9); POTASSIUM 4.8 mmol/L (3.5-5.1); TOTAL BILIRUBIN 0.7 mg/dL (0.0-1.0)
[2020-02-27] MEDS: ALBUTEROL SULFATE/IPRATROPIU 3 ML SOL IH PRN (14:27)
--- NOTE | 2020-02-27 14:30 | NUR ---
PT RESTING IN BED. ABLE TO MAKE NEEDS KNOWN. RESPIRATIONS EVEN AND UNLABORED WITH NO SOB OR RESPIRATORY DISTRESS. SKIN WARM AND DRY TO TOUCH. SAFETY MEASURES IN PLACE. WILL CONTINUE TO MONITOR
[2020-02-27 16:00] VITALS: BP 138/76
[2020-02-27] MEDS ORDERED: ZOS3.375PM IV (17:08)
[2020-02-27] MEDS ORDERED: LOV100I SUBQ (17:08)
[2020-02-27] MEDS ORDERED: VITD400 PO (17:08)
[2020-02-27] MEDS ORDERED: [UNRECOGNIZED DRUG - CODE] PO (17:08)
[2020-02-27] MEDS ORDERED: DEC10I IVP (17:08)
[2020-02-27] MEDS ORDERED: ZINC220C28 PO (17:08)
--- NOTE | 2020-02-27 17:29 | NUR ---
ADMINISTERED SCHED MED PRESCRIBED PER MD ORDER. PT TOLERATED WELL. MEDICATION EDUCATION PERFORMED. PT VERBALIZED UNDERSTANDING. SAFETY MEASURES IN PLACE. WILL CONTINUE TO MONITOR
--- NOTE | 2020-02-27 17:45 | NUR ---
PER DAVID, THEY DO NOT HAVE ENOUGH STAFF FOR PATIENT TO GET TRANSFERRED. JORGE AND SON MADE DUNNE. CALLED [facility] TO LET THEM KNOW THAT PATIENT IS NOT LEAVING. SAFETY MEASURES IN PLACE. WILL CONTINUE TO MONITOR
--- NOTE | 2020-02-27 19:20 | NUR ---
ENDORSED AT BEDSIDE FOR CONTINUITY OF CARE. PT IS STABLE
[2020-02-27 20:00] VITALS: BP 135/88
--- NOTE | 2020-02-27 20:00 | NUR ---
RECEIVED BEDSIDE REPORT FROM THE DAY RN EARLIER FOR CONTINUITY OF CARE. RECEIVED PT A/A/OX4, LAYING IN BED NOT IN ANY DISTRESS. DENIES ANY CHEST PAIN,SOB AND PALPITATIONS. PT ON BIPAP ORDERED, SATING 91%. NO SIGN AND SYMPTOMS OF DISTRESS NOTED AT THIS TIME. VITAL SIGNS STABLE,AFEBRILE, SATING 91% ON BIPAP SETTING. SR ON TELE MONITOR, HR-99. CALL LIGHT WITHIN REACH.WILL CONTINUE POC AND MONITORING.
--- NOTE | 2020-02-27 23:32 | NUR ---
PATIENT DAUGHTER JORGE CALLED EARLIER AND UPDATED HER WITH THE PT POC AND CONDITION. DAUGHTER IS ALSO AWARE THAT THE PT IS FOR TRANSFER TO [facility] TOMORROW.
[2020-02-28] VITALS (7 sets, daily range): BP systolic 115–147; BP diastolic 80–100
--- NOTE | 2020-02-28 | NUR ---
PATIENT VITAL SIGNS STABLE,AFEBRILE, SATING 98% ON BIPAP SETTINGS. NO COMPLAIN AT THIS TIME.NOT IN ANY DISTRESS.
[2020-02-28] MEDS: PIPERACILLIN/TAZOBACTAM 3.375 GM in DEXTROSE 5% 50 ML IV SCH ×4 (00:23→17:27)
[2020-02-28] MEDS: ALBUTEROL SULFATE/IPRATROPIU 3 ML SOL IH PRN (00:40)
--- NOTE | 2020-02-28 01:00 | NUR ---
PATIENT CALLED AND REQUESTED TO CALL RESPIRATORY THERAPIST FOR TREATMENT. CALL Virginia VALDEZ CAME AND GAVE PT A BREATHING TREATMENT. PT REQUESTED ALSO TO GIVE HIM MOUTH CARE. OFFERED TO HELP HIM BRUSH HIS TEETH BUT REFUSED . SWAB THE PT MOUTH AND USE MOUTH WASH INSTEAD.
--- NOTE | 2020-02-28 02:00 | NUR ---
PT ASLEEP AT THIS TIME. NOT IN ANY DISTRESS. SATING 92% ON BIPAP SETTING ORDERED. VISIBLE CHEST RISE AND FALL NOTED.
--- NOTE | 2020-02-28 04:00 | NUR ---
VITAL SIGNS STABLE, AFEBRILE, SATING 84%. PT ON BIPAP SETTING ORDERED. PT TAKES OFF BIPAP SOMETIMES. NO C/O PAIN. ST WITH PAC ON FOUNDRY OPERATOR, HR-102.
--- NOTE | 2020-02-28 07:10 | NUR ---
PATIENT STABLE. NO SIGN AND SYMPTOMS OF DISTRESS NOTED AT THIS TIME.ALL NEEDS ATTENDED.WILL ENDORSE THE PT TO THE ONCOMING RN FOR CONTINUITY OF CARE.CALL LIGHT WITHIN REACH.
--- NOTE | 2020-02-28 08:30 | NUR ---
PATIENT IS AOX4, RESPIRATIONS EVEN, LABORED ON BIPAP SPO2 85%. PATIENT IS ANXIOUS, TRYING TO DRINK WATER, MOVING AROUND TO USE URINAL CAUSING OVEREXERTION AND DESATURATION. SINUS TACHY ON FLAG SIGNALER. DENIES PAIN. NOTIFIED RESPIRATORY THERAPIST AND DR HAILE REGARDING UNSTABLE CONDITION. NOTIFIED NURSING SURGICAL SERVICES DIRECTOR OF [facility] [place]. UPDATED PATIENT AND FAMILY ON PLAN OF CARE. WILL CONTINUE TO MONITOR.
[2020-02-28] MEDS: ZINC SULF 220 MG CAP PO SCH ×2 (08:32→20:47)
[2020-02-28] MEDS: VITAMIN D 400 IU TAB PO SCH ×2 (08:33→20:47)
[2020-02-28] MEDS: DEXAMETHASONE 10 MG/ML VIAL IVP SCH (08:33)
[2020-02-28] MEDS: ENOXAPARIN 100 MG/ML SYR SUBQ SCH ×2 (08:34→20:50)
[2020-02-28] MEDS: PETROLATUM WHITE 30 GM TUBE TP SCH ×2 (08:35→20:51)
[2020-02-28 08:55] LABS: BASOPHILS % (AUTO) 0.2 % (0.0-2.0); EOSINOPHILS # (AUTO) 0.4 K/uL (0-0.4); EOSINOPHILS % (AUTO) 2.8 % (0.0-4.0); HEMATOCRIT 42.2 % (36-52); HEMOGLOBIN 13.9 g/dL (12.0-18.0); LYMPHOCYTES # (AUTO) 0.8 K/uL (2.0-11.5); LYMPHOCYTES % (AUTO) 6.3 % (20.5-51.1); MEAN CORPUSCULAR HEMOGLOBIN 30 pg (27-31); MEAN CORPUSCULAR HGB CONC 33 g/dL (33-37); MONOCYTES # (AUTO) 0.8 K/uL (0.8-1.0); MONOCYTES % (AUTO) 6.6 % (1.7-9.3); NEUTROPHILS # (AUTO) 10.6 K/uL (1.8-7.7); NEUTROPHILS % (AUTO) 84.1 % (42.2-75.2); PLATELET COUNT (AUTO) 258 K/uL (140-450); RED BLOOD CELL COUNT(AUTO) 4.63 MIL/uL (4.20-6.10); RED CELL DISTRIBUTION WIDTH 15.1 % (11.6-13.7); WHITE BLOOD COUNT (AUTO) 12.6 K/uL (4.8-10.8)
[2020-02-28 09:05] LABS: ALBUMIN 1.9 g/dL (3.4-5.0); ANION GAP 11.6 (8-16); CARBON DIOXIDE 31.9 mmol/L (21-32); CREATININE 0.8 mg/dL (0.6-1.3); PHOSPHORUS 2.9 mg/dL (2.5-4.9); POTASSIUM 4.5 mmol/L (3.5-5.1); TOTAL BILIRUBIN 0.7 mg/dL (0.0-1.0)
[2020-02-28 12:34] LABS: MAGNESIUM 1.7 mg/dL (1.8-2.4)
--- NOTE | 2020-02-28 13:30 | NUR ---
PATIENT IS UNABLE TO TOLERATE DIET. ORAL AND NASAL CARE PROVIDED. SPO2 88% AT REST. ENCOURAGED RELAXATION.
--- NOTE | 2020-02-28 14:00 | NUR ---
WASHERY ENGINEER RECOMMENDS TPN. NOTIFIED DR. HAILE.
--- NOTE | 2020-02-28 16:21 | NUR ---
ATTEMPTED TO PLACE MORRISON CATHETER, PT REPORTS HAVING A CIRCUMCISION 3 YEARS AGO IN WHICH THEY "CUT TOO MUCH OFF." UNABLE TO INSERT DUE TO RESISTANCE.
--- NOTE | 2020-02-28 16:29 | NUR ---
02/28/20 RD FOLLOW UP COMPLETED PLEASE REFER TO NUTRITION ASSESSMENT UNDER CARE ACTIVITY FOR ESTIMATED NUTRITIONAL NEEDS. 1. RECOMMEND PARENTERAL NUTRITION FOR POOR PO TOLERANCE WITH BIPAP 2. CONTINUE GROUND DIET WITH ENSURE CLEAR TID IF PT IS ABLE TO TOLERATE 3. ENCOURAGE INCREASING PO INTAKE 4. RD TO FOLLOW-UP 2-3 DAYS, HIGH RISK GAMALIEL NGUYEN RD
--- NOTE | 2020-02-28 18:00 | NUR ---
ATTEMPTED MORRISON INSERTION WITH COUDE TIP, RESISTANCE MET. PATIENT TURNED IN BED, DESATURATED TO 70S, WITH NOTICEABLE INCREASED WORK OF BREATHING. CURRENTLY SPO2 MID 80S. NOTIFIED DR. HAILE. UPDATED SON OF PLAN OF CARE.
[2020-02-28] MEDS: NACL 0.9% 1,000 ML IV SCH (19:55)
--- NOTE | 2020-02-28 20:00 | NUR ---
RECEIVED BEDSIDE REPORT FROM THE DAY RN EARLIER FOR CONTINUITY OF CARE. RECEIVED PT A/A/OX4, LAYING IN BED NOT IN ANY DISTRESS. DENIES ANY CHEST PAIN,SOB AND PALPITATIONS. PT ON BIPAP ORDERED, SATING 83%. NO SIGN AND SYMPTOMS OF DISTRESS NOTED AT THIS TIME. VITAL SIGNS STABLE,AFEBRILE. ST WITH PAC ON TELE MONITOR, HR-115. CALL LIGHT WITHIN REACH.WILL CONTINUE POC AND MONITORING.
--- NOTE | 2020-02-28 21:30 | NUR ---
PATIENT SON CALLED AND UPDATED HIM WITH THE PT POC AND CONDITION.
--- NOTE | 2020-02-28 22:00 | NUR ---
ADMINISTERED ALL THE SCHEDULED MEDICATIONS ORDERED. PT TOLERATED IT WELL. NO ADVERSE DRUG REACTION NOTED.
[2020-02-29] VITALS (11 sets, daily range): BP systolic 76–152; BP diastolic 48–102
[2020-02-29] MEDS: PIPERACILLIN/TAZOBACTAM 3.375 GM in DEXTROSE 5% 50 ML IV SCH ×4 (00:11→19:00)
--- NOTE | 2020-02-29 01:00 | NUR ---
RECEIVED PT FROM JESSICA MARTINEZ. PT IS AAOX4, BIPAP 100% FI02 SATING 83%, BEDREST, DENIES ANY PAIN, RIGHT UPPER ARM PICC LINE, LEFT LOWER EXTREMITY EDEMA. CALL LIGHT WITHIN REACH. WILL CONTINUE POC AND MONITORING.
--- NOTE | 2020-02-29 01:00 | NUR ---
ENDORSED THE PT TO JUAN MALHOTRA FOR CONTINUITY OF CARE. SIGNING OFF.
--- NOTE | 2020-02-29 02:45 | NUR ---
NO S/S OF RESPIRATORY DISTRESS AT THIS TIME, PT SLEEPS COMFORTABLY
--- NOTE | 2020-02-29 03:05 | NUR ---
EMPTIED 100ML URINE
--- NOTE | 2020-02-29 04:37 | NUR ---
PT SLEEPS COMFORTABLY, NO S/S OF RESPIRATORY DISTRESS AT THIS TIME
--- NOTE | 2020-02-29 06:54 | NUR ---
NO S/S OF RESPIRATORY DISTRESS AT THIS TIME
--- NOTE | 2020-02-29 07:22 | NUR ---
ENDORSED TO DAY SHIFT NURSE
--- NOTE | 2020-02-29 08:05 | NUR ---
PT INTUBATED PER DR. SUERO. PLACED ON VENT PC 30, RATE 24, PEEP +14, 100%, 7.5 ETT @ 23CM AT THE TEETH. WILL CONTINUE TO MONITOR.
[2020-02-29] MEDS ORDERED: ROCURONIUM 50 MG/5 ML VIAL IV ONE (08:15)
[2020-02-29] MEDS ORDERED: ETOMIDATE 20 MG/10 ML VIAL IVP ONE (08:15)
[2020-02-29] MEDS: DEXAMETHASONE 10 MG/ML VIAL IVP SCH (10:18)
[2020-02-29] MEDS: ENOXAPARIN 100 MG/ML SYR SUBQ SCH ×2 (10:20→21:01)
--- NOTE | 2020-02-29 12:00 | NUR ---
CALL MADE TO DR HAILE. REQUEST FOR FENTANYL DRIP MADE. ALSO REQUESTED 100 MCG IVP BOLUS DOSE FOR SEDATION. NEW ORDERS RECEIVED.
[2020-02-29] MEDS ORDERED: fentaNYL citrate 0.05 MG/ML VIAL ONE (12:36)
[2020-02-29] MEDS ORDERED: fentaNYL citrate 0.05 MG/ML VIAL IVP ONE (15:15)
[2020-02-29] MEDS ORDERED: fentaNYL citrate 1 MG in NACL 0.9% 80 ML IV PRN (15:50)
[2020-02-29] MEDS ORDERED: PHENYLEPHRINE 10 MG in NACL 0.9% 250 ML IV SCH (15:50)
--- NOTE | 2020-02-29 16:37 | NUR ---
PATIENT IN BED, INTUBATED, ON FENTANYL DRIP AND NEOSYN DRIP. WILL CONTINUE TO MONITOR.
[2020-02-29] MEDS ORDERED: PHENYLEPHRINE 10 MG in NACL 0.9% 250 ML IV PRN (16:40)
[2020-02-29] MEDS: fentaNYL citrate - 50mL vial 2.5 MG in NACL 0.9% 200 ML IV PRN (17:19)
[2020-02-29] MEDS: NOREPINEPHRINE 8 MG in DEXTROSE 5% 250 ML IV PRN ×5 (18:37→21:35)
--- NOTE | 2020-02-29 19:15 | NUR ---
RECEIVED PATIENT FROM AM SHIFT NURSE FOR CONTINUITY OF CARE. ETT TO VENT. RESPIRATIONS TACHYPNEIC AND LABORED. O2SAT 100%. SKIN WARM, DRY. PICC TO UPPER RIGHT ARM INFUSING LEVOPHED AND FENTANYL. RASS -1. FLACC 0. ABDOMEN SOFT, NONTENDER, NONDISTENDED. PATIENT IS INCONTINENT. ISOLATION PRECAUTIONS OBSERVED. FREQUENT ROUNDS MADE BY ALL STAFF.
--- NOTE | 2020-02-29 19:40 | NUR ---
RECEIVED PATIENT FROM DAY SHIFT ON PC 26,RR24, PEEP 12,100%. VENT PLUGGED INTO RED OUTLET. BMV AT BEDSIDE. ETT SECURED. ALARMS SET. ETT SHIFTED ON ANKORFAST. NO RESPIRATORY DISTRESS NOTED. WILL CONTINUE TO MONITOR FOR CHANGES IN RESPIRATORY STATUS.
[2020-02-29] MEDS: PETROLATUM WHITE 30 GM TUBE TP SCH ×2 (21:00→21:16)
[2020-02-29] MEDS: VITAMIN D 400 IU TAB PO SCH ×2 (21:00→21:15)
[2020-02-29] MEDS: ZINC SULF 220 MG CAP PO SCH ×2 (21:00→21:15)
--- NOTE | 2020-02-29 22:30 | NUR ---
UPDATED FAMILY ON PATIENT'S CONDITION AND PLAN OF CARE.
[2020-02-29] MEDS: PROPOFOL 1000 MG/100 ML PREMIX 100 ML IV PRN (22:58)
[2020-03-01] VITALS (28 sets, daily range): BP systolic 89–117; BP diastolic 52–84
--- NOTE | 2020-03-01 | NUR ---
PATIENT ENDORSED TO ICU FOR CONTINUITY OF CARE.
--- NOTE | 2020-03-01 | NUR ---
RECEIVED REPORT FROM [facility] RN. PT ETT TO VENT. A/C PC- FIO2 100%, RATE 24, PEEP 12. RESPIRATION EVEN AND LABORED. LUNG SOUNDS DIMINISHED UPON AUSCULTATION. SYMMETRICAL CHEST EXPANSION. PT SEDATED. RASS -3. SKIN WARM DRY AND INTACT, LYMPHEDEMA TO LLE. RIGHT UPPER ARM PICC LINE. LINE ASYMPTOMATIC PATENT AND INTACT. PT ON PROPOFOL @ 10MCG/KG/MIN, FENTANYL 1 MCG/KG/H AND LEVOPHED 4MCG/MIN. OGT CLAMPED. BED IN LOWEST POSITION, SIDE RAILS UP, ISOLATION PRECAUTIONS MAINTAINED. WILL CONTINUE TO MONITOR.
[2020-03-01] MEDS: PIPERACILLIN/TAZOBACTAM 3.375 GM in DEXTROSE 5% 50 ML IV SCH ×4 (00:22→18:00)
--- NOTE | 2020-03-01 02:00 | NUR ---
patient transfer to 131 a. vent plugged into red outlet. bmv at bedside. alarms set.airway patent
--- NOTE | 2020-03-01 03:00 | NUR ---
PT TRANSFERRED TO 132 A. WILL MONITOR PT.
--- NOTE | 2020-03-01 04:00 | NUR ---
TURNED AND REPOSITIONED PT. PRESSURE AREAS OFF LOADED. WILL CONTINUE TO MONITOR.
--- NOTE | 2020-03-01 07:30 | NUR ---
ENDORSED PT TO DAY SHIFT RN FOR CONTINUITY OF CARE.
--- NOTE | 2020-03-01 07:40 | NUR ---
RECEIVED INTUBATED PT WITH A 7.5 ETT SECURED @23 ON VENT. SETTINGS PC Pinsp 30, R24, PEEP 12 AND FIO2 100%. PT NOT ALERT AT THIS TIME. VENT IS PLUGGED INTO A RED OUTLET WITH ALARMS ON AND FUNCTIONING. WILL CONTINUE TO MONITOR.
--- NOTE | 2020-03-01 08:00 | NUR ---
RECEIVED REPORT FROM DESOLDERER RN. PT ETT TO VENT. A/C PC: FIO2 100%, RATE 24, PEEP 12. RESPIRATION EVEN AND LABORED. LUNG SOUNDS DIMINISHED UPON AUSCULTATION. SYMMETRICAL CHEST EXPANSION. PT SEDATED. RASS -3. SKIN WARM DRY AND INTACT, LYMPHEDEMA TO LLE. RIGHT UPPER ARM PICC LINE: LINE ASYMPTOMATIC PATENT AND INTACT, RUNNING PROPOFOL 10 MCG/KG/MIN, LEVOPHED 4 MCG/MIN, FENTANYL 1.5 MCG/KG/HR. OG-TUBE IN PLACE, RESIDUAL 0ML. SAFETY MEASURES IN PLACE, SIDE RAILS UP, BED LOW AND LOCKED. WILL CONT. TO MONITOR.
[2020-03-01] MEDS: PROPOFOL 1000 MG/100 ML PREMIX 100 ML IV PRN (08:40)
[2020-03-01] MEDS: fentaNYL citrate - 50mL vial 2.5 MG in NACL 0.9% 200 ML IV PRN ×2 (09:00→23:56)
[2020-03-01] MEDS: VITAMIN D 400 IU TAB PO SCH ×2 (09:00→21:00)
[2020-03-01] MEDS: DEXAMETHASONE 10 MG/ML VIAL IVP SCH (09:00)
[2020-03-01] MEDS: PETROLATUM WHITE 30 GM TUBE TP SCH ×2 (09:00→21:00)
[2020-03-01] MEDS: ZINC SULF 220 MG CAP PO SCH ×2 (09:00→21:00)
[2020-03-01] MEDS: ENOXAPARIN 100 MG/ML SYR SUBQ SCH ×2 (09:00→22:10)
--- NOTE | 2020-03-01 11:00 | NUR ---
PTS CONDITION REMAINS UNCHANGED, SAFETY MEASURES IN PLACE, WILL CONT. TO MONITOR CLOSELY
[2020-03-01 11:34] LABS: BASOPHILS # (AUTO) 0.2 K/uL (0.00-0.22); BASOPHILS % (AUTO) 0.8 % (0.0-2.0); EOSINOPHILS # (AUTO) 0.2 K/uL (0-0.4); EOSINOPHILS % (AUTO) 0.9 % (0.0-4.0); HEMATOCRIT 41.8 % (36-52); HEMOGLOBIN 13.4 g/dL (12.0-18.0); LYMPHOCYTES # (AUTO) 1.1 K/uL (2.0-11.5); LYMPHOCYTES % (AUTO) 5.7 % (20.5-51.1); MEAN CORPUSCULAR HEMOGLOBIN 30 pg (27-31); MEAN CORPUSCULAR HGB CONC 32 g/dL (33-37); MEAN CORPUSCULAR VOLUME 93.4 fL (80-94); MONOCYTES # (AUTO) 1.3 K/uL (0.8-1.0); MONOCYTES % (AUTO) 6.8 % (1.7-9.3); NEUTROPHILS % (AUTO) 85.8 % (42.2-75.2); PLATELET COUNT (AUTO) 238 K/uL (140-450); RED BLOOD CELL COUNT(AUTO) 4.48 MIL/uL (4.20-6.10); RED CELL DISTRIBUTION WIDTH 16.3 % (11.6-13.7); WHITE BLOOD COUNT (AUTO) 19.8 K/uL (4.8-10.8)
[2020-03-01 12:58] LABS: ANION GAP 12.2 (8-16); CARBON DIOXIDE 29.7 mmol/L (21-32); CREATININE 3.4 mg/dL (0.6-1.3); POTASSIUM 4.9 mmol/L (3.5-5.1)
--- NOTE | 2020-03-01 13:30 | NUR ---
FAMILY CALLED, UPDATED ON PTS CONDITION.
--- NOTE | 2020-03-01 13:45 | NUR ---
FNS CONSULT FOR TUBE FEEDING RECEIVED, RECOMMENDED VITAL 1.2 @ 60 ML/HR, START AT 10 ML/HR AND INCREASE BY 10 ML/HR Q6H. FLUSH OF 140 ML Q6H. RECOMMENDED VITAMIN C 500 MG BID.
--- NOTE | 2020-03-01 14:30 | NUR ---
AUSCULTATED AND RESIDUAL 20ML. STARTED VITAL AF @ 10 ML/HR TO GRAVITY, WITH A GOAL RATE OF 60 ML/HR. FWF: 140 Q 6 HR. WILL CONT. TO MONITOR CLOSELY
--- NOTE | 2020-03-01 18:32 | NUR ---
CONTACTED DR HAILE AND PER HIS REQUEST, ORDER CONSULT WITH DR GORDON
--- NOTE | 2020-03-01 18:42 | NUR ---
PTS BUN/CREATININE INCREASED AND NO URINE OUTPUT
--- NOTE | 2020-03-01 20:00 | NUR ---
RECEIVED REPORT FROM [facility] SHIFT RN. PT ETT TO VENT. A/C PC: FIO2 90 %, RATE 24, PEEP 12. RESPIRATION EVEN AND LABORED. PT SEDATED,RUNNING PROPOFOL 10 MCG/KG/MIN, LEVOPHED 4 MCG/MIN, FENTANYL 1.5 MCG/KG/HR. OG-TUBE IN PLACE, FEEDING VITAL AF AT 60 CC/HR.NOLVIA WELL. RESIDUAL 0ML. GENERALIZED EDEMA NOTED.SKIN WARM DRY AND INTACT, LYMPHEDEMA TO LLE. RIGHT UPPER ARM PICC LINE: LINE ASYMPTOMATIC PATENT AND INTACT. PER REPORT PT NO URINE AND CONSULT ORDER TO DR. GORDON GENERAL EXPEDITOR .SAFETY MEASURES IN PLACE, SIDE RAILS UP, BED LOW AND LOCKED. WILL CONT. TO MONITOR
[2020-03-02] VITALS (26 sets, daily range): BP systolic 89–113; BP diastolic 43–67
[2020-03-02] MEDS: PIPERACILLIN/TAZOBACTAM 3.375 GM in DEXTROSE 5% 50 ML IV SCH ×6 (00:13→23:04)
--- NOTE | 2020-03-02 00:30 | NUR ---
[place] DAUGHTER CALLED AND UP DATE PT CONDITION
[2020-03-02] MEDS ORDERED: NOREPINEPHRINE 4 MG/4 ML VIAL IV ONE (03:14)
[2020-03-02] MEDS: NOREPINEPHRINE 8 MG in DEXTROSE 5% 250 ML IV PRN (03:23)
[2020-03-02 07:23] LABS: ANION GAP 20.8 (8-16); CARBON DIOXIDE 22.1 mmol/L (21-32); POTASSIUM 4.9 mmol/L (3.5-5.1)
--- NOTE | 2020-03-02 07:30 | NUR ---
PT LOOK COMFORTABLE . REPORT GIVEN TO AM SHIFT.
--- NOTE | 2020-03-02 07:35 | NUR ---
RECEIVED REPORT FROM [facility] PICKING TECHNICIAN RN. PT ETT TO VENT. A/C PC: FIO2 90 %, RATE 24, PEEP 12. RESPIRATION EVEN AND LABORED. PT SEDATED,RUNNING PROPOFOL 10 MCG/KG/MIN, LEVOPHED 6 MCG/MIN, FENTANYL 1.5 MCG/KG/HR. OG-TUBE IN PLACE, FEEDING VITAL AF AT 60 CC/HR. RESIDUAL 0ML. GENERALIZED EDEMA NOTED.SKIN WARM DRY AND INTACT, LYMPHEDEMA TO LLE. RIGHT UPPER ARM PICC LINE: LINE ASYMPTOMATIC PATENT AND INTACT. PER REPORT PT NO URINE, MORRISON WAS ATTEMPTED, AND CONSULT ORDER TO DR. GORDON GRAVITY PROSPECTING OBSERVER. SAFETY MEASURES IN PLACE, SIDE RAILS UP, BED LOW AND LOCKED. WILL CONTINUE TO MONITOR PATIENT.
[2020-03-02 07:41] LABS: CREATININE 5.2 mg/dL (0.6-1.3)
[2020-03-02] MEDS: DEXAMETHASONE 10 MG/ML VIAL IVP SCH (09:26)
[2020-03-02] MEDS: ENOXAPARIN 100 MG/ML SYR SUBQ SCH ×2 (09:26→20:02)
[2020-03-02] MEDS: VITAMIN D 400 IU TAB PO SCH ×2 (09:26→20:01)
[2020-03-02] MEDS: ZINC SULF 220 MG CAP PO SCH ×2 (09:26→20:01)
[2020-03-02] MEDS: PETROLATUM WHITE 30 GM TUBE TP SCH ×2 (10:00→20:02)
[2020-03-02 11:04] LABS: HEMATOCRIT 40.1 % (36-52); HEMOGLOBIN 13.1 g/dL (12.0-18.0); LYMPHOCYTES # (AUTO) 1.4 K/uL (2.0-11.5); MEAN CORPUSCULAR HEMOGLOBIN 31 pg (27-31); MEAN CORPUSCULAR HGB CONC 33 g/dL (33-37); MEAN CORPUSCULAR VOLUME 94.6 fL (80-94); MONOCYTES # (AUTO) 3.9 K/uL (0.8-1.0); NEUTROPHILS # (AUTO) 28.5 K/uL (1.8-7.7); PLATELET COUNT (AUTO) 330 K/uL (140-450); RED BLOOD CELL COUNT(AUTO) 4.24 MIL/uL (4.20-6.10)
[2020-03-02 11:46] LABS: WHITE BLOOD COUNT (AUTO) 33.8 K/uL (4.8-10.8)
[2020-03-02 12:15] LABS: LYMPHOCYTES % (AUTO) 4.2 % (20.5-51.1); MONOCYTES % (AUTO) 11.5 % (1.7-9.3); NEUTROPHILS % (AUTO) 84.3 % (42.2-75.2)
--- NOTE | 2020-03-02 13:18 | NUR ---
03/02/20 RD FOLLOW UP COMPLETED PLEASE REFER TO NUTRITION PROGRESS NOTE UNDER CARE ACTIVITY FOR ESTIMATED NUTRITIONAL NEEDS. 1.CONTINUE VITAL AF 1.2 @ 60 ML/HR X 24 HR --THIS PROVIDES 1728 KCAL AND 108 G PROTEIN PROVIDING 100% OF ESTIMATED KCAL AND PROTEIN NEEDS 2. CONTINUE FREE WATER FLUSH [address] TO FOLLOW-UP 2-3 DAYS, HIGH RISK KETTY WOLFF, RD
--- NOTE | 2020-03-02 13:28 | NUR ---
PATIENT'S SON WILY CALLED. UPDATED HIM AND FAMILY MEMBERS ON PATIENT'S CONDITION. LEELEE MONTESINOS, DAUGHTER, REQUESTED THAT DR. HAILE CALL AND UPDATE FAMILY. FORWARDED THEIR REQUEST AND PROVIDED LEELEE'S PHONE #: [phone].
[2020-03-02] MEDS: NACL 0.9% 1,000 ML IV SCH (14:04)
[2020-03-02] MEDS: PROPOFOL 1000 MG/100 ML PREMIX 100 ML IV PRN (14:07)
[2020-03-02] MEDS ORDERED: VANCOMYCIN PER PHARMACY MC PRN (15:40)
[2020-03-02] MEDS ORDERED: VANCOMYCIN 1GM/DEXT 5% PREMIX 200 ML IV ONE (16:40)
[2020-03-02] MEDS ORDERED: VANCOMYCIN 1,000 MG VIAL ONE (16:55)
--- NOTE | 2020-03-02 19:35 | NUR ---
REPORT GIVEN TO GOLF BALL MARKER AT BEDSIDE FOR CONTINUITY OF CARE.
--- NOTE | 2020-03-02 19:40 | NUR ---
RECEIVED ENDORSEMENT FROM DAY SHIFT RN. PT SEDATED RASS -3, ETT TO VENT ACPC FIO2 90% RATE 24 PEEP 12. RESPIRATION EVEN AND LABORED, MARIELLA PICC RUNNING PROPOFOL, LEVOPHED, FENTANYL AND NS. OG-TUBE IN PLACE, FEEDING VITAL AF. RESIDUAL 25ML. GENERALIZED EDEMA NOTED.SKIN WARM DRY AND INTACT, LYMPHEDEMA TO BLE. FC IN PLACE DRAINING TO GRAVITY WITH SCANT YELLOW CLEAR URINE. SAFETY MEASURES IN PLACE, SIDE RAILS UP, BED LOW AND LOCKED. WILL CONTINUE TO MONITOR
--- NOTE | 2020-03-02 19:40 | NUR ---
RECEIVED PT ON SETTING PC 26, R 24, PEEP 12,FIO2 90%, I TIME 0.6 SEC. VENTILATOR PLUGGED INTO THE RED OUTLET TOLERATING WELL WITHOUT ANY ADVERSE REACTION NOTED. INTUBATED WITH ETT 7.5 SECURED WITH ANCHOR FAST @ 23 @ LIP. ALARM SET AUDIBLE AMBU BAG AT BEDSIDE. PT HAS GOOD CHEST RISE AND FALL, AIRWAY PATENT. WILL CONTINUE TO MONITOR.
--- NOTE | 2020-03-02 23:21 | NUR ---
PT SON, WILY, CALLED FOR UPDATE IN REGARDS TO FATHER
[2020-03-03] VITALS (29 sets, daily range): BP systolic 72–110; BP diastolic 55–65
[2020-03-03] MEDS ORDERED: VANCOMYCIN PER PHARMACY MC PRN (00:35)
[2020-03-03] MEDS: NACL 0.9% 1,000 ML IV SCH ×3 (01:57→20:00)
[2020-03-03] MEDS: fentaNYL citrate - 50mL vial 2.5 MG in NACL 0.9% 200 ML IV PRN ×2 (01:58→16:42)
[2020-03-03] MEDS: PROPOFOL 1000 MG/100 ML PREMIX 100 ML IV PRN ×2 (03:48→18:22)
[2020-03-03] MEDS: PIPERACILLIN/TAZOBACTAM 3.375 GM in DEXTROSE 5% 50 ML IV SCH ×4 (05:02→23:11)
[2020-03-03] MEDS: NOREPINEPHRINE 8 MG in DEXTROSE 5% 250 ML IV PRN ×2 (05:16→20:00)
--- NOTE | 2020-03-03 07:37 | NUR ---
ENDORSED TO DAY SHIFT RN FOR CONTINUITY OF CARE
--- NOTE | 2020-03-03 07:39 | NUR ---
RECEIVED PATIENT FROM NURSE INFORMATICIST NURSE JOSESITO FOR CONTINUITY OF CARE, PATIENT IS LYING ON SUPINE POSITION, RASS -3, DRY WEIGHT 125 KG, RESPIRATION EVEN AND UNLABORED ON ETT TO VENT, AC/PC FIO2 90%, RATE 24, PEEP 12, SPO2 AT 92% AT THIS TIME. FLACC 0. LUNGS SOUND COARSE ON AUSCULTATION. PUPILS 2MM, SLUGGISH, DOES NOT TRACK. IV ON MARIELLA PICC RUNNING PROPOFOL 10MCG/KG/HR, LEVOPHED 6 MCG/MIN, FENTANYL 1.5 MCG/KG/HR, AND NS AT 100 ML/HR. ABD SOFT, ROUND AND NON-DISTENDED. SKIN DRY AND WARM TO TOUCH. OGT IN PLACE, RUNNING NEPRO AT 20 ML.HR AT THIS TIME, H2O FLSUH 140 ML/Q6HR. PATIENT IS INCONTINENT, MORRISON IN PLACE, NO URINE NOTED IN BAG. PATIENT IS BEDREST. FALL RISK PROTOCOL AND ENHANCED DROPLET PRECAUTION IN PLACE. SAFETY MEASURES IN PLACE. BED IN LOW POSITION, HOB ELEVATED 35 DEGREE, AND BED LOCKED.
--- NOTE | 2020-03-03 08:52 | NUR ---
FAMILY MEMBERS IS SEEING PATIENT BY WINDOW-SIDE FROM PARKING LOT.
[2020-03-03] MEDS ORDERED: DOCUSATE 100 MG/10 ML UDC GT PRN (09:10)
[2020-03-03 09:25] LABS: HEMATOCRIT 40.7 % (36-52); HEMOGLOBIN 12.3 g/dL (12.0-18.0); MEAN CORPUSCULAR HEMOGLOBIN 30 pg (27-31); MEAN CORPUSCULAR HGB CONC 30 g/dL (33-37); MEAN CORPUSCULAR VOLUME 97.5 fL (80-94); PLATELET COUNT (AUTO) 205 K/uL (140-450); RED BLOOD CELL COUNT(AUTO) 4.18 MIL/uL (4.20-6.10); RED CELL DISTRIBUTION WIDTH 16.4 % (11.6-13.7)
[2020-03-03] MEDS: ZINC SULF 220 MG CAP PO SCH ×2 (09:47→20:59)
[2020-03-03] MEDS: VITAMIN D 400 IU TAB PO SCH ×2 (09:47→20:59)
[2020-03-03] MEDS: DEXAMETHASONE 10 MG/ML VIAL IVP SCH (09:47)
[2020-03-03] MEDS: PETROLATUM WHITE 30 GM TUBE TP SCH ×2 (09:47→21:00)
[2020-03-03 09:48] LABS: WHITE BLOOD COUNT (AUTO) 29.4 K/uL (4.8-10.8)
[2020-03-03 09:49] LABS: EOSINOPHILS % (MANUAL) 1 % (0-4); LYMPHOCYTES % (MANUAL) 4 % (20-46); MONOCYTES % (MANUAL) 6 % (5-12)
--- NOTE | 2020-03-03 09:59 | NUR ---
CHECKED OGT AND RECEIVED 65 ML RESIDUAL, INCREASED FEEDING TO 30 ML/HR, FLUSHED. ADMINISTERED SCHEDULED MEDS AND PRN COLACE DUE TO PATIENT IS CONSTIPATED AND PENDING ON STOOL SPECIMEN FOR C-DIFF, HOLD LOVENOX SUBQ OF THIS TIME WILL ASK MD DUE TO POOR KIDNEY FUNCTION BUN 82 CR 5.2 FROM YESTERDAY LAB, TODAY CHEMISTRY LAB IS STILL PENDING. PROVIDED HYGIENE CARE, ORAL CARE, SUCTIONING, CHG BATH, MORRISON CARE, REPOSITIONED PATIENT, AND OFFLOADED PRESSURE WITH PILLOWS. NO URINE NOTED IN BAG, IRRIGATED WITH STERILE WATER, PATENT AND INTACT, WILL NOTIFY MD WHEN ROUND. SAFETY MEASURES IN PLACE. HOB ELEVATED 35 DEGREE, BED IN LOW POSITION, AND BED LOCKED.
--- NOTE | 2020-03-03 10:43 | NUR ---
DR HAILE IS ROUNDING ON PATIENT. ORDERED TO CHANGE LOVENOX SUB TO HEPARIN 5,000 UNIT SUBQ Q12H, REPEATED AND CONFIRMED ORDER WITH DR HAILE, WILL INPUT ORDER ACCORDINGLY.
--- NOTE | 2020-03-03 11:23 | NUR ---
DR SANDERS IS ROUNDING ON PATIENT, AND WAS LOW URINE OUTPUT AND CONSIDER TO INSERT GARRETT CATHETER FOR HD. PER DR SANDERS, HE WILL INPUTS ORDER FOR DR ROSALES AND WILL ALSO NOTIFY HIM.
--- NOTE | 2020-03-03 11:51 | NUR ---
ADMINISTERED SCHEDULED ZOSYN. PROVIDED ORAL CARE.
[2020-03-03 12:52] LABS: CARBON DIOXIDE 29.7 mmol/L (21-32)
[2020-03-03 12:58] LABS: CREATININE 6.9 mg/dL (0.6-1.3); POTASSIUM 7.7 mmol/L (3.5-5.1)
--- NOTE | 2020-03-03 13:10 | NUR ---
POTASSIUM 6.9 FROM AM LAB, NOTIFIED DR SANDERS AT NURSING STATION, DR SANDERS WILL INPUT ORDER.
--- NOTE | 2020-03-03 13:19 | NUR ---
RECEIVED A CALL FROM PATIENT'S SON WILY MONTESINOS, UPDATED WILY WITH PATIENT'S CURRENT CONDITION, WILY WAS AWARE. EXPLAINED TO MARIELA THAT DR SANDERS THE HUMAN SERVICE COORDINATOR ORDERS HEMODIALYSIS AND DR ROSALES IS THE SURGEON WILL INSERT GARRETT CATHETER, OBTAINED TELEPHONE CONSENTS FOR GARRETT CATHETER PLACEMENT, HEMODIALYSIS WITH ANOTHER RN, WILY WAS AWARE AND AGREE TO PROCEDURES.
[2020-03-03] MEDS ORDERED: CALCIUM GLUCONATE 10% 2,000 MG in NACL 0.9% 100 ML IV SCH (13:30)
[2020-03-03] MEDS ORDERED: CALCIUM GLUCONATE 10% 2,000 MG in NACL 0.9% 50 ML IV SCH (13:30)
[2020-03-03] MEDS ORDERED: INSULIN REGULAR, HUMAN 100 UNIT/ML VIAL IV SCH (14:00)
[2020-03-03] MEDS ORDERED: DEXTROSE 50% 50 ML SYR IVP SCH (14:00)
[2020-03-03] MEDS ORDERED: SODIUM ZIRCONIUM CYCLOSILICATE 10 GM POWD.PACK PO SCH (14:00)
--- NOTE | 2020-03-03 14:40 | NUR ---
DR ROSALES INSERTED A GARRETT CATH AT BEDSIDE. AWAITING FOR CXR TO CONFIRM PLACEMENT.
--- NOTE | 2020-03-03 14:42 | NUR ---
5,[address] TO [address] ROSALES DURING PROCEDURE.
--- NOTE | 2020-03-03 14:54 | NUR ---
GARRETT DELEON INSERTED, PAGED LULU OCAMPO ON REGARDS OF DIALYSIS ORDER, AWAITING FOR MD TO RETURN CALL.
--- NOTE | 2020-03-03 15:10 | NUR ---
BLOOD GLUCOSE 229, ADMINISTERED ORDERED MEDS, HUMULIN R 10 UNIT IVP, CALCIUM GLUCONATE IVPG, 50% DEXTROSE IVP.
--- NOTE | 2020-03-03 16:55 | NUR ---
NOTIFIED MILLY GENERATOR MAN THAT PATIENT HAS DIALYSIS ORDER, AND MILLY WAS AWARE.
--- NOTE | 2020-03-03 17:38 | NUR ---
TOOLING INSPECTOR IS AT BEDSIDE AND DOING DIALYSIS AT THIS TIME.
--- NOTE | 2020-03-03 18:45 | NUR ---
PROVIDED 10,000 UNIT HEPARIN TO RETENTION REPRESENTATIVE MIRA FOR PORTS FLUSH.
--- NOTE | 2020-03-03 19:25 | NUR ---
ENDORSED PATIENT TO FOUR SLIDE MACHINE OPERATOR NURSE SERGEY FOR CONTINUITY OF CARE, PATIENT IS STILL IN DIALYSIS. JOANNE SIDE GLUER AT BEDSIDE.
--- NOTE | 2020-03-03 19:26 | NUR ---
RECEIVED REPORT FROM AM NURSE. PATIENT CURRENTLY ON HEMODIALYSIS, DIALYSIS NURSE AT BEDSIDE. PT SEDATED, RASS -3, DRY WEIGHT 125 KG. PT ON ETT TO VENT, AC/PC FIO2 90%, RATE 24, PEEP 12. CURRENT O2 SAT 90%. LUNGS SOUND DIMINISHED AND COARSE ON AUSCULTATION. PT NOT IN DISTRESS. PT WITH MARIELLA PICC RUNNING PROPOFOL 10MCG/KG/HR, LEVOPHED 16 MCG/MIN, FENTANYL 1.5 MCG/KG/HR, AND NS AT 100 ML/HR. ABD SOFT AND NON-TENDER. SKIN DRY AND WARM TO TOUCH. OGT IN PLACE, RUNNING NEPRO AT 40 ML.HR AT THIS TIME, H2O FLUSH 140 ML/Q6HR. PATIENT IS INCONTINENT, MORRISON IN PLACE, NO URINE NOTED IN BAG. PATIENT IS BEDREST. SAFETY MEASURES IN PLACE. WILL CONTINUE TO MONITOR.
--- NOTE | 2020-03-03 20:10 | NUR ---
HEMODIALYSIS DONE. 2L OUT PER DIALYSIS NURSE. VS STABLE. PT NOT IN DISTRESS. WILL CONTINUE TO MONITOR.
--- NOTE | 2020-03-03 20:59 | NUR ---
100 ML RESIDUAL NOTED ON OG TUBE. FEEDING DECREASED TO 30CC/HR. SCHEDULED MEDS GIVEN ORDERED. PT NOT IN DISTRESS. FLACC 0. SAFETY MEASURES IN PLACE. WILL CONTINUE TO MONITOR.
[2020-03-03] MEDS ORDERED: NOREPINEPHRINE 4 MG/4 ML VIAL IV ONE (21:38)
--- NOTE | 2020-03-03 22:06 | NUR ---
ORAL CARE DONE. PT WITH BLOODY SECRETIONS. PT TOLERATED WELL. NO S/SX OF DISTRESS NOTED. FLACC 0. SAFETY MEASURES IN PLACE. WILL CONTINUE TO MONITOR.
[2020-03-04] VITALS (29 sets, daily range): BP systolic 85–108; BP diastolic 45–65
--- NOTE | 2020-03-04 00:22 | NUR ---
CHG BATH GIVEN, PERINEAL CARE DONE. NO BOWEL MOVEMENT NOTED. PT TURNED TO SIDE. PT NOT IN DISTRESS. SAFETY MEASURES IN PLACE. WILL CONTINUE TO MONITOR.
--- NOTE | 2020-03-04 02:20 | NUR ---
PT IN BED. ET TO VENT. NO S/SX OF DISTRESS NOTED. FLACC 0. PT KEPT COMFORTABLE, TURNED TO SIDE. SAFETY MEASURES IN PLACE. WILL CONTINUE TO MONITOR.
--- NOTE | 2020-03-04 04:36 | NUR ---
ORAL CARE DONE. PT STILL WITH BLOODY SECRETIONS. PT TOLERATED WELL. CURRENT O2 SAT 89%. NO S/SX OF DISTRESS NOTED. FLACC0. SAFETY MEASURES IN PLACE. WILL CONTINUE TO MONITOR.
[2020-03-04] MEDS: NACL 0.9% 1,000 ML IV SCH ×2 (06:00→16:00)
[2020-03-04] MEDS: PIPERACILLIN/TAZOBACTAM 3.375 GM in DEXTROSE 5% 50 ML IV SCH ×2 (06:12→12:05)
[2020-03-04] MEDS ORDERED: NOREPINEPHRINE 4 MG/4 ML VIAL IV ONE (06:14)
[2020-03-04] MEDS: fentaNYL citrate - 50mL vial 2.5 MG in NACL 0.9% 200 ML IV PRN ×2 (06:19→23:41)
[2020-03-04] MEDS: NOREPINEPHRINE 8 MG in DEXTROSE 5% 250 ML IV PRN ×3 (06:20→20:36)
--- NOTE | 2020-03-04 06:20 | NUR ---
NEW LEVOPHED AND FENTANYL BAG HUNG. PT MOUTH NOTED WITH BLEEDING. PT SUCTIONED. ORAL CARE GIVEN, RT MADE AWARE. WILL CONTINUE TO MONITOR.
[2020-03-04 06:46] LABS: HEMATOCRIT 36.4 % (36-52); HEMOGLOBIN 11.3 g/dL (12.0-18.0); MEAN CORPUSCULAR HEMOGLOBIN 30 pg (27-31); MEAN CORPUSCULAR HGB CONC 31 g/dL (33-37); MEAN CORPUSCULAR VOLUME 96.3 fL (80-94); PLATELET COUNT (AUTO) 137 K/uL (140-450); RED BLOOD CELL COUNT(AUTO) 3.78 MIL/uL (4.20-6.10); RED CELL DISTRIBUTION WIDTH 15.8 % (11.6-13.7)
[2020-03-04 07:30] LABS: ANION GAP 15.8 (8-16); CARBON DIOXIDE 28.5 mmol/L (21-32)
--- NOTE | 2020-03-04 07:50 | NUR ---
ENDORSED TO DAY SHIFT NURSE FOR CONTINUITY OF CARE
[2020-03-04] MEDS: PROPOFOL 1000 MG/100 ML PREMIX 100 ML IV PRN ×2 (08:04→19:06)
--- NOTE | 2020-03-04 08:07 | NUR ---
RECEIVED PATIENT FROM AIRCRAFT CABIN CLEANER NURSE GILDA FOR CONTINUITY OF CARE, PATIENT IS LYING ON SUPINE POSITION, RASS -3, DRY WEIGHT 125 KG, RESPIRATION EVEN AND UNLABORED ON ETT TO VENT, AC/VC FIO2 100%, RATE 24, PEEP 12, SPO2 AT 91% AT THIS TIME. FLACC 0. LUNGS SOUND COARSE ON AUSCULTATION. JAKY TUCKER IN PLACE,MARIELLA PICC RUNNING PROPOFOL 10 MCG/KG/HR, LEVOPHED 16 MCG/MIN, FENTANYL 1.5 MCG/KG/HR, AND NS AT 100 ML/HR. ABD SOFT, ROUND AND NON-DISTENDED. SKIN DRY AND WARM TO TOUCH. OGT IN PLACE, NEPRO RUNNING AT 30 ML/HR THIS TIME . PATIENT IS INCONTINENT, MORRISON IN PLACE, NO URINE NOTED IN BAG. PATIENT IS BEDREST. FALL RISK PROTOCOL AND ENHANCED DROPLET PRECAUTION IN PLACE. SAFETY MEASURES IN PLACE. BED IN LOW POSITION, HOB ELEVATED 35 DEGREE, AND BED LOCKED.
[2020-03-04] MEDS: DEXAMETHASONE 10 MG/ML VIAL IVP SCH (08:27)
[2020-03-04] MEDS: PETROLATUM WHITE 30 GM TUBE TP SCH ×2 (08:27→20:02)
[2020-03-04] MEDS: ZINC SULF 220 MG CAP PO SCH ×2 (08:27→20:01)
[2020-03-04] MEDS: VITAMIN D 400 IU TAB PO SCH ×2 (08:27→20:01)
--- NOTE | 2020-03-04 08:27 | NUR ---
CHECKED OGT AND RECEIVED 100 ML RESIDUAL, CONTINUE NEPRO FEEDING AT 30 ML/HR, FLUSHED. ADMINISTERED SCHEDULED MEDS, HOLD HEPARIN SUBQ DUE TO ACTIVE BLEEDING ON GUM NOTED DURING ORAL CARE, WILL NOTIFY MD DURING ROUNDING. PROVIDED HYGIENE CARE, ORAL CARE, SUCTIONING, CHG BATH, MORRISON CARE, REPOSITIONED PATIENT, AND OFFLOADED PRESSURE WITH PILLOWS. SAFETY MEASURES IN PLACE. HOB ELEVATED 35 DEGREE, BED IN LOW POSITION, AND BED LOCKED.
[2020-03-04 08:31] LABS: WHITE BLOOD COUNT (AUTO) 32.9 K/uL (4.8-10.8)
[2020-03-04 08:33] LABS: LYMPHOCYTES % (MANUAL) 2 % (20-46); MONOCYTES % (MANUAL) 8 % (5-12)
--- NOTE | 2020-03-04 08:45 | NUR ---
RECEIVED CRITICAL LAB FOR K 6.3, CR 6.3, BUN 49, PHOS 10.7, LULU OCAMPO MADE AWARE AT NURSING STATION. DR SANDERS ORDERS DIALYSIS FOR [facility] AND [facility] ONCE DOSE.
[2020-03-04 08:59] LABS: CREATININE 6.3 mg/dL (0.6-1.3); POTASSIUM 6.3 mmol/L (3.5-5.1)
[2020-03-04 09:02] LABS: MAGNESIUM 2.5 mg/dL (1.8-2.4)
[2020-03-04 09:03] LABS: PHOSPHORUS 10.7 mg/dL (2.5-4.9)
[2020-03-04] MEDS ORDERED: SODIUM ZIRCONIUM CYCLOSILICATE 10 GM POWD.PACK PO SCH (09:15)
--- NOTE | 2020-03-04 10:00 | NUR ---
ADMINISTERED LOKELMA PER MD ORDER VIA OGT.
--- NOTE | 2020-03-04 10:04 | NUR ---
NOTIFIED MILLY CLAY HOISTER FOR PATIENT HAVE DIALYSIS TODAY, MILLY MARTINEZ WAS AWARE.
--- NOTE | 2020-03-04 10:16 | NUR ---
PAGED DIONTE FOR WBC 32.9, AWAITING FOR MD TO CALL BACK.
--- NOTE | 2020-03-04 10:30 | NUR ---
DR HAILE IS ROUNDING ON PATIENT. NOTIFIED OF ACTIVE BLEEDING ON GUM, ORDERED TO HOLD HEPARIN SUBQ.
--- NOTE | 2020-03-04 10:39 | NUR ---
RECEIVED A CALL BACK FROM DR RAPP, AND NOTIFIED WBC 32.9. ORDERED DIFLUCAN 400 MG ONCE TODAY, AND 200 MG ONCE AFTER EACH DIALYSIS, BLOOD CULTURE X2, REPEATED AND CONFIRMED WITH DR RAPP. WILL INPUT ORDERS.
--- NOTE | 2020-03-04 12:06 | NUR ---
SCHEDULED ZOSYN ADMINISTERED. PROVIDED ORAL CARE AND SUCTIONING, REPOSITIONED PATIENT, OFFLOADED PRESSURE WITH PILLOWS, SAFETY MEASURES IN PLACE.
--- NOTE | 2020-03-04 12:35 | NUR ---
DR ROSALES IS ROUNDING ON PATIENT.
--- NOTE | 2020-03-04 13:36 | NUR ---
DAUGHTER JORGE CALLED, UPDATED JORGE WITH PATIENT'S CURRENT CONDITION, JORGE WAS AWARE.
--- NOTE | 2020-03-04 13:38 | NUR ---
MILLY STEEL FINISHER IS AT BEDSIDE AND ABOUT TO START DIALYSIS.
--- NOTE | 2020-03-04 14:46 | NUR ---
10,000 UNIT HEPARIN PROVIDED ATKINS HAT BLOCK MAKER FOR PORTS FLUSH.
--- NOTE | 2020-03-04 15:01 | NUR ---
PATIENT'S FAMILY IS SEEING PATIENT FROM WINDOW AT PARKING LOT.
[2020-03-04] MEDS ORDERED: FLUCONAZOLE 400 MG/NS PREMIX 200 ML IV SCH (18:00)
--- NOTE | 2020-03-04 19:37 | NUR ---
ENDORSED PATIENT TO FRUIT PICKER MACHINE OPERATOR NURSE GILDA FOR CONTINUITY OF CARE.
--- NOTE | 2020-03-04 19:38 | NUR ---
RECEIVED REPORT FROM AM NURSE. PT SEDATED, RASS -3, DRY WEIGHT 125 KG. PT ON ETT TO VENT, AC/PC FIO2 100%, RATE 24, PEEP 12. CURRENT O2 SAT 90%. LUNGS SOUND DIMINISHED AND COARSE ON AUSCULTATION. PT NOT IN DISTRESS. PT WITH MARIELLA PICC RUNNING PROPOFOL 20MCG/KG/HR, LEVOPHED 28 MCG/MIN, FENTANYL 1.5 MCG/KG/HR, AND NS AT 100 ML/HR. ABD SOFT AND NON-TENDER. SKIN DRY AND WARM TO TOUCH. OGT IN PLACE, RUNNING NEPRO AT 30 ML/HR AT THIS TIME, GOAL 60/HR, H2O FLUSH 140 ML/Q6HR. PATIENT IS INCONTINENT, MORRISON IN PLACE, NO URINE NOTED IN BAG. PATIENT IS BEDREST. SAFETY MEASURES IN PLACE. WILL CONTINUE TO MONITOR.
--- NOTE | 2020-03-04 19:55 | NUR ---
O2 SAT RANGING 80-84%. PT ON MAX VENT SETTINGS. RT AND MD AWARE. WILL CONTINUE TO MONITOR.
[2020-03-04] MEDS: PIPERACILLIN/TAZOBACTAM 2.25 GM in DEXTROSE 5% 50 ML IV SCH (20:01)
--- NOTE | 2020-03-04 20:02 | NUR ---
220 RESIDUAL ON OG TUBE. FEEDING DECREASED TO 20CC/HR. SCHEDULED MEDS GIVEN ORDERED. PT SUCTIONED ORALLY. BLOODY SECRETIONS OBTAINED. HEPARIN HELD PER MD AWARE. WILL CONTINUE TO MONITOR.
--- NOTE | 2020-03-04 20:36 | NUR ---
NEW LEVOPHED BAG HUNG. PT STILL AT 28MCG/HR. WILL CONTINUE TO MONITOR.
[2020-03-04] MEDS ORDERED: VANCOMYCIN 1,000 MG in DEXTROSE 5% 250 ML IV SCH (21:00)
--- NOTE | 2020-03-04 21:00 | NUR ---
BP 85/49 HR 78 O2 SAT 81%. LEVOPHED TITRATED UP TO 30MCG/HR. WILL CONTINUE TO MONITOR. Addendum: 03/04/20 at 2255 by Ismael Victor RN VS REASSESSED AFTER 5 MINS. BP 108/55 HR 80 O2 SAT 82%.
--- NOTE | 2020-03-04 22:24 | NUR ---
PT STILL WITH BLOODY ORAL SECRETIONS. PT SUCTIONED. ORAL CARE DONE. WILL CONTINUE TO MONITOR.
--- NOTE | 2020-03-04 23:41 | NUR ---
NEW FENTANYL BAG HUNG. WILL CONTINUE TO MONITOR.
[2020-03-05] VITALS (22 sets, daily range): BP systolic 49–102; BP diastolic 29–55
[2020-03-05] MEDS ORDERED: PHENYLEPHRINE 10 MG/ML VIAL ONE ×3 (01:32→06:21)
[2020-03-05] MEDS: PHENYLEPHRINE 10 MG in NACL 0.9% 250 ML IV PRN ×5 (01:55→10:20)
--- NOTE | 2020-03-05 01:55 | NUR ---
BP 54/29 HR 63. MADE AWARE. STARTED PHENYLEPHRINE DRIP ORDERED. WILL CONTINUE TO MONITOR. Addendum: 03/05/20 at 0245 by Ismael Victor RN PROPOFOL DECREASED TO 15 MCG/KG/MIN
[2020-03-05] MEDS: NOREPINEPHRINE 8 MG in DEXTROSE 5% 250 ML IV PRN ×2 (02:00→07:15)
[2020-03-05] MEDS: NACL 0.9% 1,000 ML IV SCH ×2 (02:00→12:00)
--- NOTE | 2020-03-05 02:00 | NUR ---
NEW LEVOPHED BAG HUNG. PROPOFOL DECREASED TO 10MCG/KG/MIN. WILL CONTINUE TO MONITOR.
[2020-03-05] MEDS: PROPOFOL 1000 MG/100 ML PREMIX 100 ML IV PRN (03:59)
--- NOTE | 2020-03-05 04:05 | NUR ---
BP 88/46 HR 76. PHENYLEPHRINE DRIP INCREASED TO 100 MCG/MIN. WILL CONTINUE TO MONITOR. Addendum: 03/05/20 at 0414 by Ismael Victor RN VS RECHECKED AFTER 5 MINS. BP 96/54 HR 78. WILL CONTINUE TO MONITOR.
[2020-03-05] MEDS ORDERED: PIPERACILLIN/TAZOBACTAM 2.25 GM VIAL IV ONE (06:05)
[2020-03-05] MEDS: PIPERACILLIN/TAZOBACTAM 2.25 GM in DEXTROSE 5% 50 ML IV SCH ×2 (06:08→13:17)
--- NOTE | 2020-03-05 06:12 | NUR ---
ORAL CARE GIVEN. MODERATE AMOUNT OF BLOODY SECRETIONS SUCTIONED. SAFETY MEASURES IN PLACE. WILL CONTINUE TO MONITOR.
[2020-03-05 06:34] LABS: ANION GAP 12.1 (8-16); CARBON DIOXIDE 29.4 mmol/L (21-32); POTASSIUM 5.5 mmol/L (3.5-5.1)
[2020-03-05] MEDS ORDERED: NOREPINEPHRINE 4 MG/4 ML VIAL IV ONE (06:49)
--- NOTE | 2020-03-05 07:00 | NUR ---
CALLED FAMILY, SPOKE TO DAUGHTER AND INFORMED OF PATIENT'S CONDITION.
--- NOTE | 2020-03-05 07:40 | NUR ---
RECEIVED PATIENT FROM POLYMER CHEMIST NURSE GILDA FOR CONTINUITY OF CARE, PATIENT IS LYING ON SUPINE POSITION, RASS -3, DRY WEIGHT 125 KG, RESPIRATION EVEN AND UNLABORED ON ETT TO VENT, AC/VC FIO2 100%, RATE 24, PEEP 12, SPO2 AT 76% AT THIS TIME. PUPIL 3MM, SLUGGISH, DOES NOT TRACK. FLACC 0. LUNGS SOUND DIMINISHED ON AUSCULTATION. JAKY TUCKER IN PLACE,MARIELLA PICC RUNNING PROPOFOL 10 MCG/KG/HR, LEVOPHED 30 MCG/MIN, FENTANYL 1.5 MCG/KG/HR, RBE-SYNEPHRINE AT 100 MCG/MIN AND NS AT 100 ML/HR. ABD SOFT, ROUND AND NON-DISTENDED. SKIN DRY AND WARM TO TOUCH. OGT IN PLACE, NEPRO RUNNING AT 30 ML/HR THIS TIME . PATIENT IS INCONTINENT, MORRISON IN PLACE, NO URINE NOTED IN BAG. PATIENT IS BEDREST. FALL RISK PROTOCOL AND ENHANCED DROPLET PRECAUTION IN PLACE. SAFETY MEASURES IN PLACE. BED IN LOW POSITION, HOB ELEVATED 35 DEGREE, AND BED LOCKED.
--- NOTE | 2020-03-05 07:40 | NUR ---
ENDORSED TO DAY SHIFT NURSE FOR CONTINUITY OF CARE
--- NOTE | 2020-03-05 07:43 | NUR ---
DR KRAFT IS ROUNDING ON PATIENT. NOTIFIED DR KRAFT OF PATIENT'S CURRENT CONDITION, DR KRAFT WAS AWARE AND SAID SHE WILL DISCUSS WITH FAMILY.
--- NOTE | 2020-03-05 08:15 | NUR ---
RECEIVED PATIENT FROM BOOK SORTER ON [place] PC 26, R 24, PEEP 12, FIO2 100%. VENT PLUGGED INTO RED OUTLET. BMV AT BEDSIDE, ETT SECURED WITH AN ANCHOR FAST 7.50 @ 23Cm. ALARMS SET AUDIBLE. NO RESPIRATORY DISTRESS NOTED. WILL CONTINUE TO MONITOR FOR CHANGES IN RESPIRATORY STATUS.
[2020-03-05 08:19] LABS: CREATININE 6.2 mg/dL (0.6-1.3)
--- NOTE | 2020-03-05 08:21 | NUR ---
BP 78/31, PULSE 69, SPO2 AT 75% ON FIO2 100%, DESPITE CHANGING CUFF SITE, PROVIDED ORAL CARE AND SUCTIONING.
--- NOTE | 2020-03-05 08:38 | NUR ---
RECEIVED CRITICAL LAB FOR CR 6.2, RAVEN ARCEO, PRINT MANAGER MD FOR TRENA IS LULU OCAMPO, AWAITING FOR MD TO CALL BACK.
--- NOTE | 2020-03-05 08:42 | NUR ---
LULU OCAMPO IS ROUNDING ON PATIENT AND NOTIFIED OF CRITICAL LABS, DR SANDERS WAS AWARE.
[2020-03-05] MEDS: VITAMIN D 400 IU TAB PO SCH (08:54)
[2020-03-05] MEDS: ZINC SULF 220 MG CAP PO SCH (08:54)
[2020-03-05] MEDS: DEXAMETHASONE 10 MG/ML VIAL IVP SCH (08:54)
[2020-03-05] MEDS: PETROLATUM WHITE 30 GM TUBE TP SCH (08:55)
--- NOTE | 2020-03-05 09:00 | NUR ---
CHECKED OGT AND RECEIVED 220 RESIDUAL, HOLD FEEDING AT THIS TIME. ADMINISTERED SCHEDULED MEDS VIA OGT, FLUSH BEFORE AND AFTER MEDS, HELD HEPARIN SUBQ DUE ACTIVE BLEEDING ON GUM NOTED AND LOW PLT. PROVIDED HYGIENE CARE, MORRISON CARE, REPOSITIONED PATIENT, PATIENT TOLERATED FAIR, SPO2 AT 78% ON FIO2 100%, NORSYNEPHRINE AT 150 MCG/MIN AND LEVOPHED AT 30 MCG/MIN, BP 80/42 PULSE 69. SAFETY MEASURES IN PLACE.
[2020-03-05] MEDS ORDERED: SODIUM ZIRCONIUM CYCLOSILICATE 10 GM POWD.PACK PO SCH (09:45)
[2020-03-05 10:12] LABS: HEMATOCRIT 29.8 % (36-52); HEMOGLOBIN 9.3 g/dL (12.0-18.0); MEAN CORPUSCULAR HEMOGLOBIN 30 pg (27-31); MEAN CORPUSCULAR HGB CONC 31 g/dL (33-37); RED BLOOD CELL COUNT(AUTO) 3.07 MIL/uL (4.20-6.10); RED CELL DISTRIBUTION WIDTH 15.3 % (11.6-13.7)
[2020-03-05 10:27] LABS: WHITE BLOOD COUNT (AUTO) 27.9 K/uL (4.8-10.8)
[2020-03-05 10:28] LABS: PLATELET COUNT (AUTO) 72 K/uL (140-450)
--- NOTE | 2020-03-05 10:44 | NUR ---
RECEIVED CRITICAL LAB FOR WBC 27.9 AND PLT 72, DR KRAFT MADE AWARE AND NO ORDER RECEIVED AT THIS TIME.
--- NOTE | 2020-03-05 10:51 | NUR ---
LOKELMA ADMINISTERED VIA OGT.
[2020-03-05] MEDS ORDERED: FLUCONAZOLE 200 MG/NS PREMIX 100 ML IV SCH (11:00)
[2020-03-05 11:19] LABS: LYMPHOCYTES % (MANUAL) 5 % (20-46); MONOCYTES % (MANUAL) 7 % (5-12)
[2020-03-05] MEDS: PHENYLEPHRINE 40 MG in NACL 0.9% 250 ML IV PRN ×2 (11:55→14:10)
--- NOTE | 2020-03-05 11:57 | NUR ---
PATIENT HAS A SMALL LIQUID BM, NOT ENOUGH TO COLLECT STOOL SPECIMEN FOR C-DIFF. WITH ASSIST, PROVIDED HYGIENE CARE, CHANGED ALL DIRTY LINENS, REPOSITIONED PATIENT AND USED PILLOWS TO OFFLOADED PRESSURE. SAFETY MEASURES IN PLACE. BED IN LOW POSITION, HOB ELEVATED 35 DEGREE, AND BED LOCKED.
--- NOTE | 2020-03-05 13:17 | NUR ---
SCHEDULED ZOSYN ADMINISTERED, PROVIDED ORAL CARE AND HYGIENE CARE. BLEEDING ON MOUTH AND GARRETT CATHETER NOTED, CHANGED [employer] DRESSING AND APPLIED PRESSURE ON SITE. FAMILY IS SEEING PATIENT FROM WINDOW-SIDE FROM PARKING LOT.
--- NOTE | 2020-03-05 13:30 | NUR ---
RECEIVED A CALL FROM PATIENT'S DAUGHTER JORGE, UPDATED JORGE WITH PATIENT'S CURRENT CONDITION AND ANSWERED ALL JORGE'S QUESTIONS, JORGE WAS AWARE. OBTAINED TELEPHONE CONSENT WITH ANOTHER RN FOR GARRETT CATHETER REPLACEMENT, JORGE WAS AWARE AND AGREED TO PROCEDURE.
--- NOTE | 2020-03-05 13:47 | NUR ---
NOTIFIED DR KRAFT THAT PATIENT'S DAUGHTER JORGE WOULD LIKE TO TALK TO HER ABOUT PATIENT, PROVIDED DR KRAFT WITH JORGE' PHONE #.
--- NOTE | 2020-03-05 15:44 | NUR ---
DR FLYNN IS TALKING TO PATIENT'S FAMILY MEMBERS AND UPDATED FAMILY MEMBERS WITH PATIENT'S CURRENT CONDITION.
--- NOTE | 2020-03-05 16:46 | NUR ---
03/05/20 RD FOLLOW UP COMPLETED PLEASE REFER TO NUTRITION ASSESSMENT UNDER CARE ACTIVITY FOR ESTIMATED NUTRITIONAL NEEDS. 1. CONTINUE NEPRO 1.8 @ 60 ML/HR -THIS PROVIDES 2592 KCAL AND 117 GM OF PROTEIN WHICH MEETS SUFFICIENT NUTRIENT NEEDS 2. CONTINUE FLUSH OF [address] PRN FOR CHANGES 4. RD TO FOLLOW-UP 2-3 DAYS, HIGH RISK GAMALIEL NGUYEN, RD
--- NOTE | 2020-03-05 17:10 | NUR ---
BEHAVIORAL MODIFICATION ASSISTANT NOTIFIED PATIENT IS ASYSTOLE ON MONITOR. FAMILY ARE BY WINDOW-SIDE AND MADE AWARE. EXPLAINED WE DO NOT HAVE A MORTUARY IN THE HOSPITAL, FAMILY MEMBERS AND DAUGHTER JORGE VERBALIZED UNDERSTAND. PER JORGE, THEY WILL ARRANGE A MORTUARY AND PROVIDE US WITH THE INFORMATION ONCE FINALIZE.
--- NOTE | 2020-03-05 17:30 | NUR ---
INSPECTOR RETURNED MATERIALS GIOVANNI NOTIFIED OF .
--- NOTE | 2020-03-05 17:55 | NUR ---
CALLED [facility] PRIMARY CARE PROVIDER [phone] TO REPORT , AWAITING FOR CALL BACK.
--- NOTE | 2020-03-05 17:58 | NUR ---
CALLED [facility] AND REPORTED, PROVIDED ALL REQUESTED INFORMATION. PER HETAL CAMPO, [facility] IS NOT GOING TO SOFTWARE RELEASE ENGINEER THE BODY, REFERENCE #[id number].
--- NOTE | 2020-03-05 17:59 | NUR ---
ADMITTING DEPARTMENT NOTIFIED OF .
--- NOTE | 2020-03-05 19:44 | NUR ---
ENDORSED POST-MORTEM CARE AND BODY TO MANAGER DIVISION, AWAITING FOR METAL RIVETING MACHINE OPERATOR TO CALL BACK. FAMILY IS STILL WORKING ON ARRANGE THE MORTUARY AT THIS TIME.
--- NOTE | 2020-03-05 22:43 | NUR ---
BODY PICKED UP BY MORTUARY, BELONGINGS GIVEN TO FAMILY
== END 2020-03-05 22:46 | DRG 870 ==
LOC: MED 20:53 → MTU 23:21 → MMU 03-01 00:55
PROVIDERS: ADMIT Hospitalist; ATTEND Hospitalist
PROC: XW033E5 Introduction of Remdesivir Anti-infective into Peripheral Vein, Percutaneous Approach, New Technology Group 5 (ICD-10-PCS; 2020-02-19)
PROC: XW13325 Transfusion of Convalescent Plasma (Nonautologous) into Peripheral Vein, Percutaneous Approach, New Technology Group 5 (ICD-10-PCS; 2020-02-23)
PROC: 5A09457 Assistance with Respiratory Ventilation, 24-96 Consecutive Hours, Continuous Positive Airway Pressure (ICD-10-PCS; 2020-02-25)
PROC: 5A1955Z Respiratory Ventilation, Greater than 96 Consecutive Hours (ICD-10-PCS; principal; 2020-02-29)
PROC: 0BH17EZ Insertion of Endotracheal Airway into Trachea, Via Natural or Artificial Opening (ICD-10-PCS; 2020-02-29)
PROC: 5A12012 Performance of Cardiac Output, Single, Manual (ICD-10-PCS; 2020-02-29)
PROC: 5A1D70Z Performance of Urinary Filtration, Intermittent, Less than 6 Hours Per Day (ICD-10-PCS; 2020-03-04)
PROC: 02HV33Z Insertion of Infusion Device into Superior Vena Cava, Percutaneous Approach (ICD-10-PCS; 2020-03-04)
PROC: B548ZZA Ultrasonography of Superior Vena Cava, Guidance (ICD-10-PCS; 2020-03-04)
DX: A41.9 Sepsis, unspecified organism (principal); U07.1 COVID-19; J15.9 Unspecified bacterial pneumonia; J96.01 Acute respiratory failure with hypoxia; J12.89 Other viral pneumonia; J10.08 Influenza due to other identified influenza virus with other specified pneumonia; E43 Unspecified severe protein-calorie malnutrition; N17.0 Acute kidney failure with tubular necrosis; Z68.42 Body mass index [BMI] 45.0-49.9, adult; D84.9 Immunodeficiency, unspecified; G93.40 Encephalopathy, unspecified; E66.01 Morbid (severe) obesity due to excess calories; E87.5 Hyperkalemia; I89.0 Lymphedema, not elsewhere classified; M32.9 Systemic lupus erythematosus, unspecified; J45.909 Unspecified asthma, uncomplicated; E83.39 Other disorders of phosphorus metabolism; E87.6 Hypokalemia; D63.1 Anemia in chronic kidney disease; N18.9 Chronic kidney disease, unspecified; I46.9 Cardiac arrest, cause unspecified
CPT/HCPCS: 36415; 36600; 71045; 80048; 80053; 80202; 81001; 82550; 82803; 82948; 83605; 83615; 83735; 83880; 84100; 84484; 85025; 85379; 85651; 86140; 86886; 86900; 86901; 87040; 87070; 87081; 87086; 87205; 87804; 90935; 92950; 93005; 93970; 94002; 94003; 94640; 94660; 99285; J0456; J0610; J1100; J1450; J1644; J1650; J1815; J2001; J2370; J2543; J2704; J3010; J3370; J3475; J3480; J3490; J7030; J7060; P9017; U0003